=== PATIENT | female | born 1960 | race Caucasian/White ===

== ENCOUNTER 2022-06-04 06:29 | Day surgery (SDC) | payer OTHER, SELFPAY ==
[2022-05-31 11:39] VITALS: BMI 34.2
--- NOTE | 2022-06-03 10:10 | P.CONAN_ITS ---
Documented by User: Sarah Ritter NP 06/03/22 10:11 HPI - Anesthesia Eval Consult details Narrative: 62yo F for Colonoscopy PMFSH Past Medical History Medical History (Updated 05/31/22 @ 11:38 by Agnes Seals RN) Anxiety Depression Elevated cholesterol GERD (gastroesophageal reflux disease) HX: benign breast biopsy IBS (irritable bowel syndrome) Panic attacks Sciatic leg pain Surgical History Surgical History (Updated 05/31/22 @ 11:35 by Agnes Seals RN) H/O colonoscopy History of bunionectomy Hx laparoscopic cholecystectomy Social History Social History (Updated 05/31/22 @ 11:36 by Agnes Seals RN) Patient Tobacco Use Status: Former Tobacco user Quit Date: 2021 Tobacco use type: Cigarette Advance Directives: No Advance Directives Information Provided: Yes Meds Allergies Allergy/AdvReac Type Severity Reaction Status Date / Time penicillin G Allergy Unknown hives Verified 06/29/19 00:00 epinephrine AdvReac Palpitation Verified 06/04/22 06:56 s prednisone AdvReac Gastrointestinal Verified 06/04/22 06:57 Upset Home Medications Medication Instructions Recorded Confirmed Last Taken Type atorvastatin 20 mg tablet 20 mg PO BEDTIME 05/31/22 05/31/22 Unknown History calcium carbonate 600 mg-vitamin 1 tab PO DAILY 05/31/22 05/31/22 Unknown History D3 20 mcg (800 unit) chewable tablet (Caltrate 600 plus D) fluoxetine 20 mg tablet 20 mg PO DAILY 05/31/22 05/31/22 Unknown History lorazepam 0.5 mg tablet 0.5 mg PO BEDTIME PRN Anxiety 05/31/22 05/31/22 Unknown History multivitamin 1 tab PO DAILY 05/31/22 05/31/22 Unknown History omeprazole 20 mg delayed 20 mg PO DAILY 05/31/22 05/31/22 Unknown History release,disintegrating tablet Exam Exam Date and Time: June 03, 2022 1010 Height,Weight and Vital Signs: Height 5 ft 6 in Weight 96.162 kg Assessment and Plan Assessment Anesthesia Assessment: Chart Reviewed Documented by User: Hunter Rinaldi MD 06/04/22 07:01 [facility] Past Medical History Medical History (Updated 05/31/22 @ 11:38 by Agnes Seals RN) Anxiety Depression Elevated cholesterol GERD (gastroesophageal reflux disease) HX: benign breast biopsy IBS (irritable bowel syndrome) Panic attacks Sciatic leg pain Family History Family history of problems with anesthesia: No Surgical History Surgical History (Updated 05/31/22 @ 11:35 by Agnes Seals RN) H/O colonoscopy History of bunionectomy Hx laparoscopic cholecystectomy History of Problems with Anesthesia: No Social History Social History (Updated 05/31/22 @ 11:36 by Agnes Seals RN) Patient Tobacco Use Status: Former Tobacco user Quit Date: 2021 Tobacco use type: Cigarette Advance Directives: No Advance Directives Information Provided: Yes Meds Allergies Allergy/AdvReac Type Severity Reaction Status Date / Time penicillin G Allergy Unknown hives Verified 06/29/19 00:00 epinephrine AdvReac Palpitation Verified 06/04/22 06:56 s prednisone AdvReac Gastrointestinal Verified 06/04/22 06:57 Upset Home Medications Medication Instructions Recorded Confirmed Last Taken Type atorvastatin 20 mg tablet 20 mg PO BEDTIME 05/31/22 05/31/22 Unknown History calcium carbonate 600 mg-vitamin 1 tab PO DAILY 05/31/22 05/31/22 Unknown History D3 20 mcg (800 unit) chewable tablet (Caltrate 600 plus D) fluoxetine 20 mg tablet 20 mg PO DAILY 05/31/22 05/31/22 Unknown History lorazepam 0.5 mg tablet 0.5 mg PO BEDTIME PRN Anxiety 05/31/22 05/31/22 Unknown History multivitamin 1 tab PO DAILY 05/31/22 05/31/22 Unknown History omeprazole 20 mg delayed 20 mg PO DAILY 05/31/22 05/31/22 Unknown History release,disintegrating tablet Exam Airway Mallampati Class: III TM Dist: >3cm Neck ROM: Full Loose/Missing/Broken Teeth: Yes and Upper Assessment and Plan Assessment Anesthesia Assessment: Anesthesia Plan Discussed Final Anesthetic Review Family History of Problems with Anesthesia: No History of Problems with Anesthesia: No NPO: Yes ASA Class: II Final Preanesthetic Review: No Changes in Pt Med Stat, Meds/Allgs Chart Reviewed, Consent Obtained/Reviewed and Anes Risks/Benef Reviewed Patient Risk: Intermediate Procedure Risk: Low Anesthetic Plan Anesthetic Plan: MAC: Disposition: Standard PACU
[2022-06-04] MEDS: Lactated Ringers 1,000 ML 100 ML IVCONT (07:19)
[2022-06-04 08:25] VITALS: BP 118/75; PULSE 74; RESP 18; TEMP 37; O2SAT 99
--- NOTE | 2022-06-04 08:27 | P.BOP_ITS ---
Brief Operative Note Date of Service: 06/04/22 Pre-op diagnosis: Screening Post-op diagnosis: other (Diverticulosis) Procedure: Colonoscopy to the cecum and TI Surgeon: Avelino Ojeda Anesthesia: MAC Was an Merchandise Complaint Adjuster used for this Procedure?: No Estimated blood loss (mL): 0 Pathology: none sent Condition: stable Disposition: PACU
[2022-06-04 08:40] VITALS: BP 117/69; PULSE 59; RESP 16; TEMP 36.1; O2SAT 98
--- NOTE | 2022-06-04 08:46 | OP_ITS ---
SURGEON: Avelino Ojeda MD INDICATIONS: The patient presents for evaluation of colorectal cancer screening. Full consent was obtained from her for this, including risks of bleeding and perforation. PREOPERATIVE DIAGNOSIS: Colorectal cancer screening. POSTOPERATIVE DIAGNOSIS: Colorectal cancer screening, diverticulosis, internal hemorrhoids. PROCEDURE PERFORMED: Colonoscopy to the cecum and terminal ileum. ESTIMATED BLOOD LOSS: COMPLICATIONS: ANESTHESIA: Monitored anesthesia care. ASSISTANTS: SPECIMENS: DESCRIPTION OF PROCEDURE: The patient was placed in the left lateral decubitus position. The digital rectal exam revealed no abnormalities. The Olympus video pediatric colonoscope was entered into the rectum and advanced easily to the cecum. Once in the cecum, I did identify normal-appearing cecal pouch with appendiceal orifice and a normal-appearing ileocecal valve. The terminal ileum was cannulated and appeared normal. The scope was withdrawn back in the colon. The entire cecum and ileocecal valve appeared normal. The scope was slowly withdrawn assessing all mucosal surfaces carefully. Preparation was excellent. I did not visualize any sign of polyps, colitis, nor angiodysplasia. There was a mild amount of sigmoid diverticulosis. In the rectum, the scope was retroflexed visualizing internal hemorrhoids, but no other pathology. The rectal mucosa appeared normal. Scope was straightened and withdrawn from the patient. She tolerated the procedure well and was returned to the recovery area in stable condition. IMPRESSION: 1. Diverticulosis. 2. Internal hemorrhoids. PLAN: Given today negative exam and negative family history, I would recommend a followup colonoscopy in 10 years. She will otherwise see me on a p.r.n. basis. Avelino Ojeda MD RMW/MODL / [id number]
== END 2022-06-04 09:15 | disposition home or self-care (01) ==
PROVIDERS: PCP Internal Medicine; Visit Provider Internal Medicine
PROC: 0DJD8ZZ Inspection of Lower Intestinal Tract, Via Natural or Artificial Opening Endoscopic (ICD-10-PCS; CPT 45378; principal; 2022-06-04 07:30)
DX: Z12.11 Encounter for screening for malignant neoplasm of colon (principal); E78.5 Hyperlipidemia, unspecified; M54.30 Sciatica, unspecified side; F41.8 Other specified anxiety disorders; F41.0 Panic disorder [episodic paroxysmal anxiety]; Z79.899 Other long term (current) drug therapy; Z88.0 Allergy status to penicillin; Z88.8 Allergy status to other drugs, medicaments and biological substances; Z90.49 Acquired absence of other specified parts of digestive tract; Z87.891 Personal history of nicotine dependence
CPT/HCPCS: 45378

== ENCOUNTER 2025-01-07 14:18 | Outpatient (REF) | payer OTHER, SELFPAY ==
--- OUTSIDE RECORDS SUMMARY | 2025-01-07 15:53 | XMS_ITS ---
Author Organization [facility] Address [address] [facility] [address] [place] [address] Care Team Providers Care Freight Sorter Name Role Phone Fausto Koroma Primary Care Provider GLENIS Presley Unavailable [phone] Allergies Allergen (clinical drug ingredient) Drug/Non Drug Allergy documented on EMR Reaction Allergy Type Onset Date Status epinephrine Epinephrine Unknown Drug Allergy Act melissa prednisone Prednisone anxiety disorder Drug Allergy Active Penicillin Unknown Drug Allergy Active REASON FOR VISIT B/L feet pain questioning plantar fasciitis Medications Medication SIG (Take, Route, Frequency, Duration) Notes Start Date End Date Status Singulair 10 MG 1 tablet Orally Once a day Active FLUoxetine HCl 20 MG 1 capsule Orally On ce a day Active Atorvastatin Calcium 20 MG 1 tablet Oral ly Once a day Active Citracal/Vitamin D A ctive Albuterol Sulfate HFA 108 (90 Base) MCG/ACT 1 puff as needed Inhalation every 4 hrs Active Meloxicam 15 MG 1 tablet Orally Once a day Active Multi Vitamin - 1 tablet Orally Once a day Active LORazepam 0.5 MG 1 tablet at bedtime as needed Orally Once a day PRN Active Problems Problem Type SNOMED Code ICD Code Onset Dates Problem Status W/U Status Risk Notes Problem 3623627 Inflammatory arthritis (M19.90) Active confirmed Vital Signs Temperature 96.1 degrees Fahrenheit 09/13/19 24 Heart Rate 72 /min 09/13/2023 Respiratory Rate 16 /min 09/13/2023 Height 5ft 4in in 09/13/2023 Weight 182.8 lbs 09/13/2023 BMI 31.37 kg/m2 09/13/2023 Encounters Encounter Location Date Provider Diagnosis [facility] [address] [address] 09/13/2023 GLENIS BOYD Tendonitis, Achilles , right M76.61 ; Ankle enthesopathy M77.50 ; Pain in right foot M79.671 ; Pain in left foot M79.672 and Inflammatory arthritis M19.90 Assessments Encounter Date Diagnosis (ICD Code) Assessment Notes Treatment Notes Treatment Clinical Notes Section Notes 09/13/2023 Tendonitis, Achilles, right (ICD-10 - M76.61) This is an outpatient visit for evaluation and management of a new patient, which required appropriate review of pertinent medical history, review of any previous imaging, review of all previous records, and examination and decision-making. Time was 45 minutes spent in review of all these facets including face to face discussion with the patient regarding my findings and in discussion of a current and future treatment plan. On examination, she has evidence of distal Achilles tendinitis with enthesopathy. I explained she could also have an inflammatory arthropathy which could be causing this exacerbating. I explained she has mild left foot pain, likely due to compensation from the right foot. We discussed she has tendinitis of the distal Achilles tendon of the right ankle. I reviewed her x-rays, and she has no evidence of a fracture. She has no evidence of a tear or rupture of the Achilles tendon on examination today. She has no weakness of the tendon groups on examination today. We discussed tendon injuries typically do worsen with use or activity. I explained it can take 4-8 weeks for the areas to heal from the point of injury. We discussed ice can be helpful at first, but now I would recommend heat instead. I also recommended that she start an NSAID, continue the Meloxicam. The other recommendation that I discussed with the patient is temporary immobilization of the tendons to allow for rest and healing. The patient was fitted and a medium short leg pneumatic walking boot was dispensed to the patient in the office today. I told the patient to wear this daily for 4 weeks. She is to wear this daily except for driving, sleeping, and showering. We discussed if little to no improvement in 4 weeks, I would like her to return for another evaluation and I will order an MRI. Patient is in agreement with this plan. We discussed the possibility of an inflammatory or autoimmune condition. She states her hand issue started at the same time as her foot problem. I did recommend she keeps her appointment with the numberer and wirer next month. We discussed the soft tissue mass in the lower left leg. She states her PCP is ordering an MRI for this mass. I recommended she follows up with scheduling this exam. She is in agreement with this plan. 09/13/2023 Ankle enthesopathy (ICD-10 - M77.50) 09/13/2023 Pain in right foot (ICD-10 - M79.671) 09/13/2023 Pain in left foot (ICD-10 - M79.672) 09/13/2023 Inflammatory arthritis (ICD-10 - M19.90) Plan Of Treatment Treatment Notes Assessment Notes Tendonitis, Achilles, right This is an outpatient visit for evaluation and management of a new patient, which required appropriate review of pertinent medical history, review of any previous imaging, review of all previous records, and examination and decision-making. Time was 45 minutes spent in review of all these facets including face to face discussion with the patient regarding my findings and in discussion of a current and future treatment plan. On examination, she has evidence of distal Achilles tendinitis with enthesopathy. I explained she could also have an inflammatory arthropathy which could be causing this exacerbating. I explained she has mild left foot pain, likely due to compensation from the right foot. We discussed she has tendinitis of the distal Achilles tendon of the right ankle. I reviewed her x-rays, and she has no evidence of a fracture. She has no evidence of a tear or rupture of the Achilles tendon on examination today. She has no weakness of the tendon groups on examination today. We discussed tendon injuries typically do worsen with use or activity. I explained it can take 4-8 weeks for the areas to heal from the point of injury. We discussed ice can be helpful at first, but now I would recommend heat instead. I also recommended that she start an NSAID, continue the Meloxicam. The other recommendation that I discussed with the patient is temporary immobilization of the tendons to allow for rest and healing. The patient was fitted and a medium short leg pneumatic walking boot was dispensed to the patient in the office today. I told the patient to wear this daily for 4 weeks. She is to wear this daily except for driving, sleeping, and showering. We discussed if little to no improvement in 4 weeks, I would like her to return for another evaluation and I will order an MRI. Patient is in agreement with this plan. We discussed the possibility of an inflammatory or autoimmune condition. She states her hand issue started at the same time as her foot problem. I did recommend she keeps her appointment with the numberer and wirer next month. We discussed the soft tissue mass in the lower left leg. She states her PCP is ordering an MRI for this mass. I recommended she follows up with scheduling this exam. She is in agreement with this plan. Pending Test Test Name Order Date X ray : Foot, left 3v 09/13/2023 X ray : Foot, right 3v 09/13/2023 Next Appt Details Follow Up: 4 Weeks, Reason: Progress Notes * Nikolay SAUNDERSOB:1959 (63 yo F)Acc No.[id number]:09/13/2023 Progress Notes Patient:?Leda SAUNDERS Provider:?Glenis Boyd DPM :1960???Age:63 Y???Sex:Female D ate:09/13/2023 Address:[address] [place] [address] [id number] Pcp:Fausto Koroma Subjective: * Chief Complaints: * ???B/L feet pain questioning plantar fasciitis * HPI: ???Constitutional:? This 63 y/o female presents to my office with a complaint of mainly right foot and leg pain since April 2023. She had started a new job and was on her feet all day which was a change for her. She describes the pain as an aching radiating pain. She states the pain starts in her heel and radiates up her leg. Sometimes she will get pain in the knee. She relates swelling on the right foot and ankle. She denies any specific injury or trauma. She has tried changing shoes and wearing OTC inserts with very limited improvement. She states ice and Meloxicam does help, but only temporarily. She states the left heel has started to become sore due to her pain in the right foot. She also is having pain and issues in her hands as well as her feet. She has an appointment next month with a numberer and wirer. She is concerned she may have rheumatoid arthritis because she does have a strong family history of autoimmune diseases. She also is concerned of a recent lump forming on the back of the lower left leg. She states it is not painful. She has no other foot complaints this visit. Allergies and medical history reviewed. * ROS:?GENERAL: Pt denies nausea, fever, vomiting, chills, or shortness of breath. Pt in NAD. ALLERGY: patient denies any new allergy HEME/ONC: patient denies any bleeding or clotting disorders CARDIOLOGY: pt denies chest pain, palpitations LUNGS: pt denies shortness of breath ABDOMEN: patient denies any bloating, abdominal pain, or swelling MUSCULOSKELETAL: See HPI SKIN: see HPI, otherwise no lesions, rash or itching NEURO: No persistent headache, weakness or numbness PSYCH: patient denies any current anxiety or depression The remainder of the review of systems is noncontributory. * Medical History:? * Surgical History:?cholecyste ctomy colonoscopy 2bunionectomy 09/05/1997breast biopsy sample 09/05/1980right breast fatty tumor removed * Hospitalization/Major Diagno stic Procedure:?allergic reaction to penicillin * Family History:?Father: dece ased, CAD- coronary artery disease, congestive heart failure, depression, type II diabetes, mental illness.?Mother: , COPD, lung cancer, type II diabetes, hypertension, thyroid disease.?Maternal aunt: rheumatoid arthritis.?Siblings: hyperlipidemiabrother- heart disease.? nieces- rheumatoid arthritis. * Social History:?Tobacco: former smoker Alcohol: yes, once a week. * Medications:?TakingSingulair 10 MG Tablet 1 tablet Orally Once a day Multi Vitamin - Tablet 1 tablet Orally Once a day Meloxicam 15 MG Tablet 1 tablet Orally Once a day LORazepam 0.5 MG Tablet 1 tablet at bedtime as needed Orally Once a day , Notes to Pharmacist: PRNFLUoxetine HCl 20 MG Capsule 1 capsule Orally Once a day Citracal/Vitamin D Atorvastatin Calcium 20 MG Tablet 1 tablet Orally Once a day Albuterol Sulfate HFA 108 (90 Base) MCG/ACT Aerosol Solution 1 puff as needed Inhalation every 4 hrs Medication List reviewed and reconciled with the patientTaking Singulair 10 MG Tablet 1 tablet Orally Once a day Taking Multi Vitamin - Tablet 1 tablet Orally Once a day Taking Meloxicam 15 MG Tablet 1 tablet Orally Once a day Taking LORazepam 0.5 MG Tablet 1 tablet at bedtime as needed Orally Once a day , Notes to Pharmacist: PRNTaking FLUoxetine HCl 20 MG Capsule 1 capsule Orally Once a day Taking Citracal/Vitamin D Taking Atorvastatin Calcium 20 MG Tablet 1 tablet Orally Once a day Taking Albuterol Sulfate HFA 108 (90 Base) MCG/ACT Aerosol Solution 1 puff as needed Inhalation every 4 hrs Medication List reviewed and reconciled with the patient * Allergies:?EpinephrinePenici llinPrednisone: anxiety disorderno[Allergies Verified] Objective: * Vitals:?Wt:182.8lbs, Ht: 5ft 4in, BMI:31.37Index, HR:72/min, Temp:96.1F, RR:16/min, Ht-cm: 162.56, Wt-k.92 kg. * Examination: ???General Examination: ???GENERAL: Patient appears well nourished, with NAD. ?VASCULAR: Dorsalis pedis pulses are 2/4 bilaterally and Posterior tibial pulses are 2/4 bilaterally. Capillary filling time within normal limits the digits. Each foot temperature is within normal limits. Edema of the right foot and ankle. ?NEUROLOGICAL: Sharp/dull sensation intact bilaterally, position sense intact bilaterally to the midfoot. ?ORTHOPEDIC: Good muscle strength 4+/5 of all flexors and extensors. Dorsi flexion of ankle ,0 degrees, plantar flexion WNL. No muscle atrophy. Pain on dorsiflexion and plantarflexion of the right foot. Pain on palpation of the distal right Achilles to its attachment. Pain on compression of the right heel, no pain on palpation of the plantar heel. Mild tenderness on palpation of the plantar left heel, no pain on compression of the left heel. ?DERMATOLOGICAL: Soft tissue mass at the myotendinous junction of the left Achilles, posterior lower leg size 3 cm in size, non-mobile, no pain on palpation. Normal skin temperature, normal skin turgor. ?BIOMECHANICS: STJ ROM limited with pain right, MTJ ROM limited, 1st MPJ ROM limited. ?SHOES: sneakers. Therapeutic Interventions: Assessment: * Assessment: 1.?Tendonitis, Achilles, rig ht - M76.61 (Primary)?2.?Ankle enthesopathy - M77.50?3.?Pain in right foot - M79.671?4.?Pain in left foot - M79.672?5.?Inflammatory arthritis - M19.90? Plan: * Treatment: * Notes: This is an outpatient visit for evaluation and management of a new patient, which required appropriate review of pertinent medical history, review of any previous imaging, review of all previous records, and examination and decision-making. Time was 45 minutes spent in review of all these facets including face to face discussion with the patient regarding my findings and in discussion of acurrent and future treatment plan. On examination, she has evidence of distal Achilles tendinitis with enthesopathy. I explained she could also have an inflammatory arthropathy which could be causing this exacerbating. I explained shehas mild left foot pain, likely due to compensation from the right foot. We discussed she has tendinitis of the distal Achilles tendon of the right ankle. I reviewed her x-rays, and she has no evidence of a fracture. She has no evidence of a tear or rupture of the Achilles tendon on examination today. She has no weakness of the tendon groups on examination today. We discussed tendon injuries typically do worsen with use or activity. I explained it can take 4-8 weeks for the areas to heal from the point of injury. We discussed ice can be helpful at first, but now I would recommend heat instead. I also recommended that she start an NSAID, continue the Meloxicam. The other recommendation that I discussed with the patient is temporary immobilization of the tendons to allow for rest and healing. The patient was fitted and a medium short leg pneumatic walking boot was dispensed to the patient in the office today. I told the patient to wear this daily for 4 weeks. She is to wear this daily except for driving, sleeping, and showering. We discussed if little adeline improvement in 4 weeks, I would like her to return for another evaluation and I will order an MRI. Patient is in agreement with this plan. We discussed the possibility of an inflammatory or autoimmune condition. She states her hand issue started at the same time as her foot problem. I did recommend she keeps her appointment with the numberer and wirer next month. We discussed the soft tissue mass in the lower left leg. She states her PCP is ordering an MRI for this mass. I recommended she follows up with scheduling this exam. She is in agreement with this plan.??2.?Ankle enthesopathy?Imaging: X ray : Foot, left 3v* LEFT FOOT WEIGHT BEARING 3 V IEWS obtained during today's visit. On the AP view There is evidence of a previous bunionectomy performed on the distal 1st metatarsal. Calcifications are seen medially to the 1st metatarsal head. There is some recurrence of the hallux valgus deformity. There is an increased metatarsus adductus angle. On the lateral view the screw is noted to be in place and intact. The osteotomy site has since healed. There are dorsal degenerative changes of the metatarsocuneiform joints and the navicular cuneiform joints. An os peroneum is seen on the lateral view proximal to the styloid process. There is increased sclerosis of the posterior calcaneus with a proximal heel spur. A soft tissue mass noted approximately 37.11mm above the superior aspect of the calcaneus. * ?Imaging: X ray : Foot, right 3v* RIGHT FOOT WEIGHT BEARING 3 VIEWS obtained during today's visit. On the AP view There is evidence of a previous bunionectomy performed on the distal 1st metatarsal. Calcifications are seen medially to the 1st metatarsal head. There is some recurrence of the hallux valgus deformity with cystic changes of the metatarsal heads. There is an increased metatarsus adductus angle. There are calcifications also noted around the 5th metatarsophalangeal joint. On the lateral view the screw is noted to be in place and intact. The osteotomy site has since healed. There are dorsal degenerative changes of the metatarsocuneiform joints and the navicular cuneiform joints. An os peroneum is seen on the lateral view proximal to the styloid process. There is increased sclerosis of the posterior calcaneus with a proximal heel spur * 3.?Pain in right foot?Imaging: X ray : Foot, right 3v* RIGHT FOOT WEIGHT BEARING 3 VIEWS obtained during today's visit. On the AP view There is evidence of a previous bunionectomy performed on the distal 1st metatarsal. Calcifications are seen medially to the 1st metatarsal head. There is some recurrence of the hallux valgus deformity with cystic changes of the metatarsal heads. There is an increased metatarsus adductus angle. There are calcifications also noted around the 5th metatarsophalangeal joint. On the lateral view the screw is noted to be in place and intact. The osteotomy site has since healed. There are dorsal degenerative changes of the metatarsocuneiform joints and the navicular cuneiform joints. An os peroneum is seen on the lateral view proximal to the styloid process. There is increased sclerosis of the posterior calcaneus with a proximal heel spur * 4.?Pain in left foot?Imaging: X ray : Foot, left 3v* LEFT FOOT WEIGHT BEARING 3 V IEWS obtained during today's visit. On the AP view There is evidence of a previous bunionectomy performed on the distal 1st metatarsal. Calcifications are seen medially to the 1st metatarsal head. There is some recurrence of the hallux valgus deformity. There is an increased metatarsus adductus angle. On the lateral view the screw is noted to be in place and intact. The osteotomy site has since healed. There are dorsal degenerative changes of the metatarsocuneiform joints and the navicular cuneiform joints. An os peroneum is seen on the lateral view proximal to the styloid process. There is increased sclerosis of the posterior calcaneus with a proximal heel spur. A soft tissue mass noted approximately 37.11mm above the superior aspect of the calcaneus. * 5.?Inflammatory arthritis?Imaging: X ray : Foot, left 3v* LEFT FOOT WEIGHT BEARING 3 V IEWS obtained during today's visit. On the AP view There is evidence of a previous bunionectomy performed on the distal 1st metatarsal. Calcifications are seen medially to the 1st metatarsal head. There is some recurrence of the hallux valgus deformity. There is an increased metatarsus adductus angle. On the lateral view the screw is noted to be in place and intact. The osteotomy site has since healed. There are dorsal degenerative changes of the metatarsocuneiform joints and the navicular cuneiform joints. An os peroneum is seen on the lateral view proximal to the styloid process. There is increased sclerosis of the posterior calcaneus with a proximal heel spur. A soft tissue mass noted approximately 37.11mm above the superior aspect of the calcaneus. * ?Imaging: X ray : Foot, right 3v* RIGHT FOOT WEIGHT BEARING 3 VIEWS obtained during today's visit. On the AP view There is evidence of a previous bunionectomy performed on the distal 1st metatarsal. Calcifications are seen medially to the 1st metatarsal head. There is some recurrence of the hallux valgus deformity with cystic changes of the metatarsal heads. There is an increased metatarsus adductus angle. There are calcifications also noted around the 5th metatarsophalangeal joint. On the lateral view the screw is noted to be in place and intact. The osteotomy site has since healed. There are dorsal degenerative changes of the metatarsocuneiform joints and the navicular cuneiform joints. An os peroneum is seen on the lateral view proximal to the styloid process. There is increased sclerosis of the posterior calcaneus with a proximal heel spur * * Procedure Codes:?43978 X-RAY EXAM OF FOOT 3 Views, Modifiers: RT 38627 X-RAY EXAM OF FOOT 3 Views, Modifiers: LT L4361 WALKING BOOT PNEUMATIC AND/OR VAC, Modifiers: RT * Follow Up:?4 Weeks * Billing Information: * Visit Code:? 59070 Office Visit, New Pt., Level 4. * Procedure Codes:? 95313 X-RAY EXAM OF FOOT 3 Views. Modifiers: RT 71083 X-RAY EXAM OF FOOT 3 Views. Modifiers: LT L4361 WALKING BOOT PNEUMATIC AND/OR VAC. Modifiers: RT * Sign off status: Completed true * Provider:Atul Boyd DPM Date:? 09/13/2023 Generated for Keny mi/Oleg/Melissaitting on:?01/07/2025 03:53 PM EDT History and Physical Notes * HPI (History of Present Illness) Category Sub-Category Detail Notes Category Not es Constitutional This 63 y/o f maribeth presents to my office with a complaint of mainly right foot and leg pain since April 2023. She had started a new job and was on her feet all day which was a change for her. She describes the pain as an aching radiating pain. She states the pain starts in her heel and radiates up her leg. Sometimes she will get pain in the knee. She relates swelling on the right foot and ankle. She denies any specific injury or trauma. She has tried changing shoes and wearing OTC inserts with very limited improvement. She states ice and Meloxicam does help, but only temporarily. She states the left heel has started to become sore due to her pain in the right foot. She also is having pain and issues in her hands as well as her feet. She has an appointment next month with a numberer and wirer. She is concerned she may have rheumatoid arthritis because she does have a strong family history of autoimmune diseases. She also is concerned of a recent lump forming on the back of the lower left leg. She states it is not painful. She has no other foot complaints this visit. Allergies and medical history reviewed. Examination Category Sub-Category Detail Notes Category Not es General Examination GENERAL: Patient appears well nourished, with NAD. VASCULAR: Dorsalis pedis pulses are 2/4 bilaterally and Posterior tibial pulses are 2/4 bilaterally. Capillary filling time within normal limits the digits. Each foot temperature is within normal limits. Edema of the right foot and ankle. NEUROLOGICAL: Sharp/dull sensation intact bilaterally, position sense intact bilaterally to the midfoot. ORTHOPEDIC: Good muscle strength 4+/5 of all flexors and extensors. Dorsi flexion of ankle ,0 degrees, plantar flexion WNL. No muscle atrophy. Pain on dorsiflexion and plantarflexion of the right foot. Pain on palpation of the distal right Achilles to its attachment. Pain on compression of the right heel, no pain on palpation of the plantar heel. Mild tenderness on palpation of the plantar left heel, no pain on compression of the left heel. DERMATOLOGICAL: Soft tissue mass at the myotendinous junction of the left Achilles, posterior lower leg size 3 cm in size, non-mobile, no pain on palpation. Normal skin temperature, normal skin turgor. BIOMECHANICS: STJ ROM limited with pain right, MTJ ROM limited, 1st MPJ ROM limited. SHOES: sneakers
--- OUTSIDE RECORDS SUMMARY | 2025-01-07 15:53 | XMS_ITS | Patient Health Record ---
Author Organization [facility] Address [address] [facility] [place] [address] Care Team Providers Care Women'S Garment Fitter Name Role Phone Fausto Koroma MD Primary Care Provider Rupesh Merritt Unavailable [phone] Allergies Allergen (clinical drug ingredient) Drug/Non Drug Allergy documented on EMR Reaction Allergy Type Onset Date Status EPINEPHrine heart races Drug Allergy Active Novocain heart races Drug Allergy Active Penicillin hives/hospital ization Drug Allergy Active methylprednisolone Methylprednisolone mentally a nd physically affected pt Drug Allergy Active Reason For Referral No Information Medications Medication SIG (Take, Route, Frequency, Duration) Notes Start Date End Date Status Align Not-Taking Aspirin Not-Taking metFORMIN HCl ER 500 MG 1 tablet with ev ening meal Orally Once a day Not-Takin g One Daily For Women Active Omeprazole 20 MG 1 capsule 30 minutes before morning meal Orally Once a day for 30 day(s) Active Fluoxetine Active Caltrate 600+D3 Acti ve Atorvastatin Calcium Active Social History Tobacco Use: Social History Observation Description Date Details (start date - stop date) Former Smoker NA - NA Tobacco Use/Smoking Question Answer Notes Are you a: former smoker Additional Findings: Tobacco Non-User Current no n-smoker Alcohol Screen Question Answer Notes Did you have a drink contain ing alcohol in the past year? Yes How often did you have a dri nk containing alcohol in the past year? 2 to 3 times a week (3 points) Points 3 Interpretation Positive Tobacco use other than smoking: Question Answer Notes Are you an other tobacco user? No Problems Problem Type SNOMED Code ICD Code Onset Dates Problem Status W/U Status Risk Notes Problem Acquired hammer toe of right foot (2394081666025 105) Other hammer toe(s) (acquired), right foot (M20.41) Active confirmed Plan Of Treatment Pending Test Test Name Order Date X ray : Foot, right 3V 11/03/2016 X ray : Foot, right 3V 03/01/2022 [id number] Destruction, -11/03/2016 [id number] Destruction, 09-1812/06/2016 Insurance Providers Payer Name Payer Address Payer Phone Subscriber Number Group Number Insured Name Patient Relationship to Insured Coverage Start Date [facility]age End Date [facility] [address] [place] [address] [phone] [id number] Leda Atkinson Self - patient is the insured Medical (General) History Medical History History ICD Code Anxiety Depression chronic sinusitis Thyroid disorder Chicken pox Joint implants/screws Gall bladder problems Stomach ulcer Cholesterol Surgical History Surgery Date(Month/Year) bunionectomy 1995 gall bladder-bad reaction to anesthesia breast biopsy-right/fatty tumor 1978 Hospitalization History Reason Date(Month/Year) [place]- thought she was hav ing Heart Attck Rapid Heart beat-due to med/methylprednisolone allergy 1 day 07/2021
--- OUTSIDE RECORDS SUMMARY | 2025-01-07 15:53 | XMS_ITS | Patient Health Record ---
Author Organization [facility] Address [address] [facility] [address] [place] [address] Care Team Providers Care Medical Engineer Name Role Phone Fausto Koroma Primary Care Provider ZEINA Presley Unavailable [phone] Allergies Allergen (clinical drug ingredient) Drug/Non Drug Allergy documented on EMR Reaction Allergy Type Onset Date Status epinephrine Epinephrine Unknown Drug Allergy Act melissa prednisone Prednisone anxiety disorder Drug Allergy Active Penicillin Unknown Drug Allergy Active Reason For Referral No Information Medications Medication SIG (Take, Route, Frequency, Duration) Notes Start Date End Date Status Singulair 10 MG 1 tablet Orally Once a day Active Meloxicam 15 MG 1 tablet Orally Once a day Active Multi Vitamin - 1 tablet Orally Once a day Active FLUoxetine HCl 20 MG 1 capsule Orally On ce a day Active LORazepam 0.5 MG 1 tablet at bedtime as needed Orally Once a day PRN Active Atorvastatin Calcium 20 MG 1 tablet Oral ly Once a day Active Citracal/Vitamin D A ctive Albuterol Sulfate HFA 108 (90 Base) MCG/ACT 1 puff as needed Inhalation every 4 hrs Active Problems Problem Type SNOMED Code ICD Code Onset Dates Problem Status W/U Status Risk Notes Problem 1652074 Inflammatory arthritis (M19.90) Active confirmed Plan Of Treatment Pending Test Test Name Order Date X ray : Foot, left 3v 09/13/2023 X ray : Foot, right 3v 09/13/2023 Insurance Providers Payer Name Payer Address Payer Phone Subscriber Number Group Number Insured Name Patient Relationship to Insured Coverage Start Date Coverage End Date [facility] [address] [place] [address] [phone] [id number] Leda Atkinson Self - patient is the insured Medical (General) History Medical History History ICD Code abnormal EKG allergic asthma atrophic vaginitis hypertension carpal tunnel syndrome on right fatty liver GERD (gastroesophageal reflux disease) tobacco use hypercholesterolemia hyperglycemia left sided sciatica palpitations peripheral neuropathy severe obesity (BMI 35.0-39.9) with aidan rbidity solitary pulmonary nodule stress incontinence thyroid cyst COVID vaccinated X 2 + COVID 2022 Graves disease Surgical History Surgery Date(Month/Year) cholecystectomy colonoscopy 06/04/2022 bunionectomy 09/05/1997 breast biopsy sample 09/05/1980 right breast fatty tumor removed Hospitalization History Reason Date(Month/Year) allergic reaction to penicillin
--- OUTSIDE RECORDS SUMMARY | 2025-01-07 15:54 | XMS_ITS ---
Author Organization [facility] Address [address] [address] Care Team Providers Care Auto Tune Up Mechanic Name Role Phone Fausto Koroma Primary Care Provider ZEINA Presley [phone] REASON FOR VISIT 4wk Encounters Encounter Location Date Provider Diagnosis [facility] [address] [address] 10/11/2023 ZEINA BOYD Plan Of Treatment No Information Progress Notes * Nikolay SAUNDERSOB:1959 (64 yo F)Acc No.[id number]:10/11/2023 Progress Note Patient:?Leda SAUNDERS Provider:Atul Boyd DPM :1960???Age:63 Y???Sex:Female D ate:10/11/2023 Address:[address] [place] [id number] Pcp:Fausto Koroma Subjective: * Chief Complaints: * ???1. 4wk. * Medical History:? Objective: * Vitals:? Assessment: Plan: * Treatment: * Billing Information: * Visit Code:? * Procedure Codes:? * Electronic signature of HEIDY BOYD D.P.M on 01/07/2025 at 03:53 PM EDT Sign off status: Pending * Provider:Atul Boyd DPM Date:? 10/11/2023 Generated for Angelai hiwot/Oleg/eTransmitting on:?01/07/2025 03:53 PM EDT
--- OUTSIDE RECORDS SUMMARY | 2025-01-07 15:54 | XMS_ITS | Patient Health Record ---
Author Organization [facility] Address [address] [place] [address] Care Team Providers Care Shaker Tender Name Role Phone Fausto Koroma MD Primary Care Provider Avelino Conroy [phone] Allergies Allergen (clinical drug ingredient) Drug/Non Drug Allergy documented on EMR Reaction Allergy Type Onset Date Status prednisolone Prednisolone Unknown Drug Allergy A ctive Penicillin Unknown Drug Allergy Active EPINEPHrine Unknown Drug Allergy Activ e Reason For Referral No Information Medications Medication SIG (Take, Route, Frequency, Duration) Notes Start Date End Date Status Atorvastatin Calcium 20 MG 1 tablet Orally Once a day for 30 day(s) Active Caltrate 600+D3 600-800 MG-UNIT 1 tablet with a meal Orally Once a day for 30 day(s) Active LORazepam 0.5 MG 1 tablet at bedtime as needed Orally Once a day Rarely uses Active One Daily Adults 50+ - as directed Orally Active Calcium + D 600mg Ac tive Multi Vitamin/Minerals Active Omeprazole 20 MG 1 capsule 30 minutes before morning meal Orally Once a day for 30 day(s) Active FLUoxetine HCl 20 MG 1 capsule Orally On ce a day for 30 day(s) Active Immunizations Vaccine Route Administration Date Status Comme nts Influenza Unknown 07/28/2021 Administered Social History Alcohol Screen Question Answer Notes Did you have a drink contain ing alcohol in the past year? Yes How often did you have a dri nk containing alcohol in the past year? Monthly or less (1 point) How many drinks did you have on a typical day when you were drinking in the past year? 1 or 2 drinks (0 point) How often did you have 6 or more drinks on one occasion in the past year? Never (0 point) Points 1 Interpretation Negative Section Notes: Stopped smoking for the past 2 months, no sig. EtOH use Nonsmoker, no sig. EtOH use Problems Problem Type SNOMED Code ICD Code Onset Dates Problem Status W/U Status Risk Notes Problem Screening for malignant neoplasm of colon (026510651) Encounter for screening for malignant neoplasm of colon (Z12.11) Active confirmed Problem Diverticulosis of colon (274891684) Diverticulosis of colon (K57.30) Active confirmed Plan Of Treatment Pending Test Test Name Order Date CELIAC PANEL #10 11/05/2011 ENDOMYSIAL IGA 11/05/2011 TRANSGLUTAMINASE AB IGA 11/05/2011 TRANSGLUTAMINASE AB IGG 11/05/2011 Future Test Test Name Order Date COLONOSCOPY 11/05/2011 COLONOSCOPY 03/31/2022 Insurance Providers Payer Name Payer Address Payer Phone Subscriber Number Group Number Insured Name Patient Relationship to Insured Coverage Start Date Coverage End Date [employer] [address] [place] [address] [id number] MJ CHOWDHURY Self - patient is the insured Medical (General) History Medical History History ICD Code Hyperlipidemia Denies [place],DM,CVA,Lung disease,renal dise ase Depression/anxiety/panic attacks Negative screening colonoscopy in 12/2011 Sciatica Surgical History Surgery Date(Month/Year) CCY Benign breast biopsy Bunions
[2025-01-07 17:32] LABS: MANUAL DIFF FLAG NO
[2025-01-07 17:39] LABS: Basophils Percent Auto 0.4 % (0-2); Eosinophils Absolute Auto 0.5 X10*3/uL (0.0-0.4); Eosinophils Percent Auto 4.4 % (0-4); Hemoglobin 13.8 g/dl (12.0-16.0); Imm Gran Abs Auto 0.05 X10*3/uL (0.00-0.03); Imm Gran Pct Auto 0.5 % (0.0-0.4); Lymphocytes Absolute Auto 1.8 X10*3/uL (1.2-4.9); Lymphocytes Percent Auto 17.7 % (20-40); Mean Corpuscular HGB Conc 34.5 g/dl (31.0-35.0); Mean Corpuscular Hemoglobin 30.6 pg (27.0-33.0); Mean Corpuscular Volume 88.7 fL (80.0-98.0); Mean Platelet Volume 8.9 fL (9.4-12.3); Monocytes Absolute Auto 0.7 X10*3/uL (0.1-1.2); Monocytes Percent Auto 6.8 % (2-11); Neutrophils Absolute Auto 7.2 x10*3/uL (2.0-8.3); Neutrophils Percent Auto 70.2 % (45-73); Platelet Count 319 X10*3/uL (160-400); Red Blood Count 4.51 X10*6/uL (4.20-5.50); Red Cell Distribution Width 14.8 % (11.0-16.0); White Blood Count 10.3 X10*3/uL (4.8-10.8)
[2025-01-07 17:50] LABS: Alanine Aminotransferase 14 U/L (0-31); Aspartate Amino Transferase 20 U/L (5-31); C Reactive Protein 1.65 mg/dL (< or = 0.50); Estimated Glomerular Filt Rate > 60
[2025-01-07 18:15] LABS: Erythrocyte Sedimentation Rate 16 MM/HR (0-20)
== END 2025-01-07 14:19 | disposition home or self-care (01) ==
LOC: HO.WFDLDS 14:18
PROVIDERS: Visit Provider Internal Medicine Rheumatology
DX: M05.9 Rheumatoid arthritis with rheumatoid factor, unspecified (principal); Z79.899 Other long term (current) drug therapy
CPT/HCPCS: 36415; 82040; 82565; 84450; 84460; 85025; 85652; 86140

== ENCOUNTER 2025-03-22 08:14 | Outpatient (REF) | payer OTHER, SELFPAY ==
--- OUTSIDE RECORDS SUMMARY | 2025-03-22 08:17 | XMS_ITS | Patient Health Record ---
Author Organization [facility] Address [address] [facility] [address] [place] [address] Care Team Providers Care Shiftman Name Role Phone Fausto Koroma Primary Care Provider ZEINA Presley Unavailable [phone] Allergies Allergen (clinical drug ingredient) Drug/Non Drug [...] Problem Status W/U Status Risk Notes Problem 2889682 Inflammatory arthritis (M19.90) Active confirmed Plan Of Treatment Pending Test Test Name Order Date X ray : Foot, left 3v 09/13/2023 X ray : Foot, right 3v 09/13/2023 Insurance Providers Payer Name Payer Address Payer Phone Subscriber Number Group Number Insured Name Patient Relationship to Insured Coverage Start Date Coverage End Date [employer] [address] [place] [address] [id number] Leda Atkinson Self - patient is the [...]
--- OUTSIDE RECORDS SUMMARY | 2025-03-22 08:18 | XMS_ITS | Patient Health Record ---
Author Organization [facility] Address [address] [facility] [place] [address] Care Team Providers Care Talent Engineer Name Role Phone Fausto Koroma MD Primary Care Provider Rupesh Merritt Unavailable [phone] Allergies Allergen (clinical drug ingredient) Drug/Non Drug [...] minutes before morning meal Orally Once a day; Duration: 30 day(s) Active Fluoxetine Active Caltrate 600+D3 [...] Problem Acquired hammer toe of right foot (3429446320299 105) Other hammer toe(s) (acquired), right foot (M20.41) Active confirmed Plan Of Treatment Pending Test Test Name Order Date X ray : Foot, right 3V 11/03/2016 X ray : Foot, right 3V 03/01/2022 [id number] Destruction, -11/03/2016 [id number] Destruction, -12/06/2016 Insurance Providers Payer Name Payer Address Payer Phone Subscriber Number Group Number Insured Name Patient Relationship to Insured Coverage Start Date Coverage End Date [employer] [address] [place] [address] [phone] [id number] Leda Atkinson Self - patient is the insured Medical (General) History Medical History History ICD Code Anxiety Depression chronic sinusitis Thyroid disorder Chicken pox Joint implants/screws Gall bladder problems Stomach ulcer Cholesterol Surgical History Surgery Date(Month/Year) bunionectomy 1995 gall bladder-bad reaction to anesthesia breast biopsy-right/fatty tumor 1978 Hospitalization History Reason Date(Month/Year) [place]- thought she was hav ing Heart Attck Rapid Heart beat-due to med/methylprednisolone allergy 1 day 07/2021
--- OUTSIDE RECORDS SUMMARY | 2025-03-22 08:18 | XMS_ITS | Patient Health Record ---
Author Organization [facility] Address [address] [place] [address] Care Team Providers Care Community Living Coach Name Role Phone Fausto Koroma MD Primary Care Provider Avelino Conroy [phone] Allergies Allergen (clinical drug ingredient) Drug/Non Drug [...] Problem Screening for malignant neoplasm of colon (370784600) Encounter for screening for malignant neoplasm of colon (Z12.11) Active confirmed Problem Diverticulosis of colon (883769700) Diverticulosis of colon (K57.30) Active confirmed Plan [...] Date Coverage End Date [employer] [address] [place] [address] [phone] [id number] MJ CHOWDHURY Self - patient is the insured Medical (General) History Medical History History ICD Code Hyperlipidemia Denies [place],DM,CVA,Lung disease,renal dise ase Depression/anxiety/panic attacks Negative screening colonoscopy in 12/2011 Sciatica Surgical History Surgery Date(Month/Year) CCY Benign breast biopsy Bunions
[2025-03-22 11:14] LABS: MANUAL DIFF FLAG NO
[2025-03-22 11:31] LABS: Hematocrit 39.7 % (37.0-47.0); Hemoglobin 13.4 g/dl (12.0-16.0); Imm Gran Abs Auto 0.05 X10*3/uL (0.00-0.03); Imm Gran Pct Auto 0.5 % (0.0-0.4); Lymphocytes Absolute Auto 1.5 X10*3/uL (1.2-4.9); Mean Corpuscular HGB Conc 33.8 g/dl (31.0-35.0); Mean Corpuscular Hemoglobin 30.5 pg (27.0-33.0); Mean Corpuscular Volume 90.4 fL (80.0-98.0); NRBC Abs Auto 0.000 X10*3/uL (0.0-0.012); NRBC Pct Auto 0.0 /100WBC (0.0-0.2); Platelet Count 329 X10*3/uL (160-400); Red Blood Count 4.39 X10*6/uL (4.20-5.50); White Blood Count 9.8 X10*3/uL (4.8-10.8)
[2025-03-22 11:47] LABS: Alanine Aminotransferase 20 U/L (0-31); Albumin Level 4.1 g/dL (3.5-5.0); Aspartate Amino Transferase 23 U/L (5-31); Estimated Glomerular Filt Rate > 60
[2025-03-22 11:57] LABS: Alanine Aminotransferase 18 U/L (0-31); Albumin Level 4.2 g/dL (3.5-5.0); Alkaline Phosphatase 107 U/L (39-117); Anion Gap 11 (12-20); Aspartate Amino Transferase 25 U/L (5-31); Blood Urea Nitrogen 16 mg/dL (9-16); Calcium 8.7 mg/dL (8.4-10.2); Carbon Dioxide 27 mmol/L (22-29); Chloride 108 mmol/L (96-108); Cholesterol 152 mg/dL (<200); Estimated Glomerular Filt Rate > 60; HDL Cholesterol 49 mg/dL (>40); Potassium 4.1 mmol/L (3.3-5.1); Sodium 142 mmol/L (135-145); Total Protein 7.1 g/dL (6.5-8.0)
[2025-03-22 12:13] LABS: Thyroid Stimulating Hormone 0.23 uIU/mL (0.32-4.0)
== END 2025-03-22 08:15 | disposition home or self-care (01) ==
LOC: HO.WFDLDS 08:14
PROVIDERS: Internal Medicine Rheumatology; Visit Provider Nurse Practitioner Adult Health
DX: M05.9 Rheumatoid arthritis with rheumatoid factor, unspecified (principal); E78.00 Pure hypercholesterolemia, unspecified; E04.1 Nontoxic single thyroid nodule
CPT/HCPCS: 36415; 80053; 82040; 82465; 82565; 83718; 83721; 84443; 84450; 84460; 85025; 85652; 86140

== ENCOUNTER 2025-04-06 07:23 | Outpatient (REF) | payer OTHER, SELFPAY ==
--- NOTE | ~2025-04-06 | CT_ITS ---
CLINICAL HISTORY: Solitary pulmonary nodule CT chest without contrast Comparison: None provided Findings: The heart is normal size. Mildly nonhomogeneous goiter with a few likely nodules measuring up to 15 mm in the axial plane. Small subcentimeter left thyroid lobe calcification. 1 mm calcified granuloma in the lingula best seen on the MIP images. Otherwise clear lungs. Cholecystectomy. No acute fractures. IMPRESSION: Mildly nonhomogeneous goiter with a few likely nodules measuring up to 15 mm in the axial plane. Further evaluation with ultrasound recommended. Tiny left lung calcified granuloma. Otherwise clear lungs. This document has been electronically signed by: Virgie Burr MD on 04/08/2025 12:47:46
--- OUTSIDE RECORDS SUMMARY | 2025-04-06 07:25 | XMS_ITS | Patient Health Record ---
Author Organization [facility] Address [address] [place] [address] Care Team Providers Care Client Services Administrator Name Role Phone Fausto Koroma MD Primary Care Provider Avelino Conroy [phone] Allergies Allergen (clinical drug ingredient) Drug/Non Drug [...] Problem Screening for malignant neoplasm of colon (521773666) Encounter for screening for malignant neoplasm of colon (Z12.11) Active confirmed Problem Diverticulosis of colon (451566684) Diverticulosis of colon (K57.30) Active confirmed Plan [...] Date Coverage End Date [employer] [address] [place] [address] [id number] MJ CHOWDHURY Self - patient is the insured Medical (General) History Medical History History ICD Code Hyperlipidemia Denies [place],DM,CVA,Lung disease,renal dise ase Depression/anxiety/panic attacks Negative screening colonoscopy in 12/2011 Sciatica Surgical History Surgery Date(Month/Year) CCY Benign breast biopsy Bunions
--- OUTSIDE RECORDS SUMMARY | 2025-04-06 07:25 | XMS_ITS | Patient Health Record ---
Author Organization [facility] Address [address] [facility] [place] [address] Care Team Providers Care Medical Records Coordinator Name Role Phone Fausto Koroma MD Primary Care Provider Rupesh Merritt Unavailable [phone] Allergies Allergen (clinical drug ingredient) Drug/Non Drug [...] Problem Acquired hammer toe of right foot (7821252008460 105) Other hammer toe(s) (acquired), right foot (M20.41) Active confirmed Plan Of Treatment Pending Test Test Name Order Date X ray : Foot, right 3V 11/03/2016 X ray : Foot, right 3V 03/01/2022 [id number] Destruction, -11/03/2016 [id number] Destruction, -12/06/2016 Insurance Providers Payer Name Payer Address Payer Phone Subscriber Number Group Number Insured Name Patient Relationship to Insured Coverage Start Date Coverage End Date [employer] [address] [place] [address] [id number] Leda Atkinson Self - patient is the [...]
--- OUTSIDE RECORDS SUMMARY | 2025-04-06 07:25 | XMS_ITS | Patient Health Record ---
Author Organization [facility] Address [address] [facility] [address] [place] [address] Care Team Providers Care Machine Sole Leveler Name Role Phone Fausto Koroma Primary Care Provider ZEINA Presley Unavailable [phone] Allergies Allergen (clinical drug ingredient) Drug/Non Drug [...] Problem Status W/U Status Risk Notes Problem Inflammatory arthritis (M19.90) Active confirmed Plan Of Treatment Pending Test Test Name Order Date X ray : Foot, left 3v 09/13/2023 X ray : Foot, right 3v 09/13/2023 Insurance Providers Payer Name Payer Address Payer Phone Subscriber Number Group Number Insured Name Patient Relationship to Insured Coverage Start Date Coverage End Date [employer] [facility] [address] [place] [address] [id number] Leda Atkinson Self - patient is the [...]
== END 2025-04-06 07:24 | disposition home or self-care (01) ==
LOC: HO.CT 07:23
PROVIDERS: PCP Nurse Practitioner Adult Health; Visit Provider Nurse Practitioner Adult Health
DX: R91.1 Solitary pulmonary nodule (principal)
CPT/HCPCS: 71250

== ENCOUNTER → 2025-04-06 07:45 | Outpatient (BNV) | payer OTHER, SELFPAY | PROVIDERS: PCP Nurse Practitioner Adult Health; Visit Provider Radiology Diagnostic Radiology | DX: R91.1 Solitary pulmonary nodule (principal) | CPT/HCPCS: 71250 ==

== ENCOUNTER 2025-05-21 12:24 | Outpatient (REF) | payer OTHER, SELFPAY ==
--- NOTE | ~2025-05-21 | US_ITS ---
EXAMINATION: US THYROID HISTORY: GOITER TECHNIQUE: Real-time grayscale ultrasound imaging was performed and images were reviewed. COMPARISON: Correlation is made with a CT of the chest without contrast dated 04/06/2025. FINDINGS: SIZE: The right thyroid lobe measures 7.4 x 2.8 x 2.4 cm. The left thyroid lobe measures 7.4 x 3.5 x 3.0 cm. The isthmus measures 11 mm. FLOW: Flow to the gland is normal. ECHOGENICITY: The echotexture of the gland is heterogeneous. NODULES: Multiple bilateral nodules are identified. The largest are described below: Nodule #: 1 Location: Lower pole of the right thyroid lobe measuring 2.8 x 1.9 x 1.9 cm Shape: Wider than tall (0 points) Margins: Smooth (0 points) Echotexture: n/a Composition: Spongiform (0 points) Calcifications: None (0 points) Total points: 0 TIRADS: TR1: Benign Nodule #: 2 Location: Overall the right thyroid lobe measuring 1.9 x 1.4 x 1.6 cm. Shape: Wider than tall (0 points) Margins: Smooth (0 points) Echotexture: n/a Composition: Spongiform (0 points) Calcifications: None (0 points) Total points: 0 TIRADS: TR1: Benign Nodule #: 3 Location: Isthmus measuring 1.0 x 0.7 x 1.1 cm. Shape: Wider than tall (0 points) Margins: Smooth (0 points) Echotexture: Isoechoic (1 point) Composition: Mostly solid (2 points) Calcifications: None (0 points) Total points: 3 TIRADS: TR3: Mildly suspicious. Nodule #: 4 Location: Lower pole of the left thyroid lobe measuring 2.6 x 3.7 x 3.6 cm. Shape: Wider than tall (0 points) Margins: Smooth (0 points) Echotexture: n/a Composition: Spongiform (0 points) Calcifications: None (0 points) Total points: 0 TIRADS: TR1: Benign Nodule #: 5 Location: Midportion of the left thyroid lobe measuring 1.1 x 0.7 x 0.9 cm. Shape: Wider than tall (0 points) Margins: Smooth (0 points) Echotexture: Isoechoic (1 point) Composition: Mixed (1 point) Calcifications: Punctate calcifications (3 points) Total points: 5 TIRADS: TR4: Moderately suspicious. US/US thyroid IMPRESSION: Multiple bilateral thyroid nodules as described. According to ACR TI-RADS guidelines, the nodule in the midportion of the left thyroid lobe (#5 above) should be followed. ACR TI-RADS Guidelines TR1 (0 points): Benign. No follow-up or biopsy required TR2 (2 points): Not Suspicious. No biopsy or follow up indicated TR3 (3 points): Mildly Suspicious. FNA if >= 2.5 cm, Follow if >= 1.5 cm TR4 (4-6 points): Moderately Suspicious. FNA if >= 1.5 cm, Follow if >= 1.0 cm TR5 (>=7 points): Highly Suspicious. FNA if >= 1.0 cm, Follow if >= 0.5 cm Electronically signed by: Avelino Miller MD 05/21/2025 01:15 PM EDT
--- OUTSIDE RECORDS SUMMARY | 2025-05-21 16:26 | XMS_ITS | Patient Health Record ---
Author Organization [facility] Address [address] [facility] [address] [place] [address] Care Team Providers Care Pill Maker Name Role Phone Fausto Koroma Primary Care Provider ZEINA Presley Unavailable [phone] Allergies Allergen (clinical drug ingredient) Drug/Non Drug [...] W/U Status Risk Notes Problem Inflammatory arthritis (1253425) Inflammatory arthritis (M19.90) Active confirmed Plan Of Treatment Pending Test Test Name Order Date X ray : Foot, left 3v 09/13/2023 X ray : Foot, right 3v 09/13/2023 Insurance Providers Payer Name Payer Address Payer Phone Subscriber Number Group Number Insured Name Patient Relationship to Insured Coverage Start Date Coverage End Date [facility] [address] [place] [address] [id number] Leda Atkinson Self - patient is the [...]
--- OUTSIDE RECORDS SUMMARY | 2025-05-21 16:26 | XMS_ITS | Patient Health Record ---
Author Organization [facility] Address [address] [facility] [place] [address] Care Team Providers Care Fitter Armament Name Role Phone Fausto Koroma MD Primary Care Provider Rupesh Merritt Unavailable [phone] Allergies Allergen (clinical drug ingredient) Drug/Non Drug [...] Problem Acquired hammer toe of right foot (4991306272371 105) Other hammer toe(s) (acquired), right foot (M20.41) Active confirmed Plan Of Treatment Pending Test Test Name Order Date X ray : Foot, right 3V 11/03/2016 X ray : Foot, right 3V 03/01/2022 [id number] Destruction, -11/03/2016 [id number] Destruction, -12/06/2016 Insurance Providers Payer Name Payer Address Payer Phone Subscriber Number Group Number Insured Name Patient Relationship to Insured Coverage Start Date Coverage End Date [employer] [address] [place] [address] [id number] Leda Atkinson Self - patient is the [...]
--- OUTSIDE RECORDS SUMMARY | 2025-05-21 16:26 | XMS_ITS | Patient Health Record ---
Author Organization [facility] Address [address] [place] [address] Care Team Providers Care Senior Physician Name Role Phone Fausto Koroma MD Primary Care Provider Avelino Conroy [phone] Allergies Allergen (clinical drug ingredient) Drug/Non Drug [...] Problem Screening for malignant neoplasm of colon (345572540) Encounter for screening for malignant neoplasm of colon (Z12.11) Active confirmed Problem Diverticulosis of colon (429599457) Diverticulosis of colon (K57.30) Active confirmed Plan [...] Date Coverage End Date [employer] [address] [facility] [place] [address] [id number] MJ CHOWDHURY Self - patient is the insured Medical (General) History Medical History History ICD Code Hyperlipidemia Denies [place],DM,CVA,Lung disease,renal dise ase Depression/anxiety/panic attacks Negative screening colonoscopy in 12/2011 Sciatica Surgical History Surgery Date(Month/Year) CCY Benign breast biopsy Bunions
== END 2025-05-21 12:25 | disposition home or self-care (01) ==
LOC: HO.HMGCX 12:24
PROVIDERS: PCP Nurse Practitioner Adult Health; Visit Provider Nurse Practitioner Adult Health
DX: E04.9 Nontoxic goiter, unspecified (principal)
CPT/HCPCS: 76536

== ENCOUNTER → 2025-05-21 12:43 | Outpatient (BNV) | payer OTHER, SELFPAY | PROVIDERS: PCP Nurse Practitioner Adult Health; Visit Provider Radiology Diagnostic Radiology | DX: E04.2 Nontoxic multinodular goiter (principal) | CPT/HCPCS: 76536 ==

== ENCOUNTER 2025-05-30 14:27 | Outpatient (AMB) | payer OTHER, SELFPAY ==
[2025-05-30 14:29] VITALS: BP 130/72; PULSE 69; O2SAT 97; BMI 36.1
--- NOTE | 2025-05-30 14:29 | A.OFFVIS_ITS ---
Vital Signs 05/30/25 14:29 Height 5 ft 5 in Weight 217 lb 2.485 oz BMI 36.1 BP 130/72 Blood Pressure Location Lt brachial Position Sitting Pulse 69 Pulse Source Pulse Oximeter Pulse Oximetry (%) 97 Oxygen Delivery Method Room Air Intake Visit Reasons: Thyroid nodule Intake Note: Patient present today for thyroid nodule office visit. Brewing Technician Required: No Accompanied by: Self / Same As Patient Allergies penicillin G Allergy (Unknown, Verified 05/30/25 14:33) hives epinephrine Adverse Reaction (Verified 05/30/25 14:33) Palpitations prednisone Adverse Reaction (Verified 05/30/25 14:33) Gastrointestinal Upset Medication List - Last Reconciled 05/30/25 by Margie Mclaughlin MD atorvastatin 20 mg PO BEDTIME calcium carbonate-vitamin D3 600 mg-20 mcg (800 unit) (Caltrate plus D) 1 tab PO DAILY fluoxetine 20 mg PO DAILY folic acid 1 mg PO DAILY lorazepam 0.5 mg PO BEDTIME PRN methotrexate sodium 15 mg PO QWEEK multivitamin 1 tab PO DAILY omeprazole 20 mg PO DAILY HPI Comments Details: 65-year-old female coming in today for initial evaluation of multinodular goiter. Per patient she was seeing Dr. Argueta , PCP , something between 5 to 10 years ago had a biopsy which was benign. She had a CT chest in April 2025 which pointed towards a non homogeneous thyroid gland with a few nodules, subsequently ultrasound thyroid was done on 04/20/2025, I reviewed the images myself which showed a multinodular thyroid, with large size of the lobes. Normal vascularity. A right lower pole 2.8 cm spongiform nodule noted, another right lower pole 1.9 cm spongiform nodule noted. And isthmus 1 cm solid isoechoic TR 3 nodule noted. A left lower pole 3.6 cm solid isoechoic TR 3 category category nodule noted, even though the report comments on it as spongiform, to me this appears has a solid isoechoic nodule. This meets criteria for FNA. A left mid solid isoechoic nodule with punctate echogenic foci also noted, this would be TR 5 category. Measuring 1.1 cm. I will also recommend biopsy of this. Reports comment on it as mixed cystic solid. But I think it is mostly solid. She had normal thyroid function back in 2019. Most recent lab done 03/22/2025 showed mildly low TSH of 0.23. Patient currently denies heat or cold intolerance, diarrhea or constipation, hair loss, palpitation, anxiety, weight changes, mood changes, low energy, changes in appearance of eyes or vision changes, tremors, increased diaphoresis or dry skin. ? Patient denies any difficulty swallowing, pain on swallowing or voice changes or difficulty breathing. Patient denies any history of childhood neck radiation. Denies having ever used lithium, amiodarone or biotin supplements. Patient denies any family history of thyroid cancer . Mother had thyroid disease. Physical exam General: sitting comfortably in no acute distress HEENT: normocephalic/atraumatic, Neck: supple, palpable 2 cm right-sided nodule Cardiac: normal heart sounds Pulm: normal breath sounds B/L, no added breath sounds Abd: not distended, no tenderness Extremities: no edema, no signs of myxedema Neuro: AAO x3, Speech: normal, no facial droop, moving all 4 extremities Laboratory Tests 06/26/19 03/22/25 10:27 08:47 Free T4 1.03 Free T3 3.0 TSH 3rd Generation 0.47 TSH 0.23 L Thyroid Peroxidase Ab <1 EXAMINATION: US THYROID 05/21/25 HISTORY: GOITER TECHNIQUE: Real-time grayscale ultrasound imaging was performed and images were reviewed. COMPARISON: Correlation is made with a CT of the chest without contrast dated 04/06/2025. FINDINGS: SIZE: The right thyroid lobe measures 7.4 x 2.8 x 2.4 cm. The left thyroid lobe measures 7.4 x 3.5 x 3.0 cm. The isthmus measures 11 mm. FLOW: Flow to the gland is normal. ECHOGENICITY: The echotexture of the gland is heterogeneous. NODULES: Multiple bilateral nodules are identified. The largest are described below: Nodule #: 1 Location: Lower pole of the right thyroid lobe measuring 2.8 x 1.9 x 1.9 cm Shape: Wider than tall (0 points) Margins: Smooth (0 points) Echotexture: n/a Composition: Spongiform (0 points) Calcifications: None (0 points) Total points: 0 TIRADS: TR1: Benign Nodule #: 2 Location: Overall the right thyroid lobe measuring 1.9 x 1.4 x 1.6 cm. Shape: Wider than tall (0 points) Margins: Smooth (0 points) Echotexture: n/a Composition: Spongiform (0 points) Calcifications: None (0 points) Total points: 0 TIRADS: TR1: Benign Nodule #: 3 Location: Isthmus measuring 1.0 x 0.7 x 1.1 cm. Shape: Wider than tall (0 points) Margins: Smooth (0 points) Echotexture: Isoechoic (1 point) Composition: Mostly solid (2 points) Calcifications: None (0 points) Total points: 3 TIRADS: TR3: Mildly suspicious. Nodule #: 4 Location: Lower pole of the left thyroid lobe measuring 2.6 x 3.7 x 3.6 cm. Shape: Wider than tall (0 points) Margins: Smooth (0 points) Echotexture: n/a Composition: Spongiform (0 points) Calcifications: None (0 points) Total points: 0 TIRADS: TR1: Benign Nodule #: 5 Location: Midportion of the left thyroid lobe measuring 1.1 x 0.7 x 0.9 cm. Shape: Wider than tall (0 points) Margins: Smooth (0 points) Echotexture: Isoechoic (1 point) Composition: Mixed (1 point) Calcifications: Punctate calcifications (3 points) Total points: 5 TIRADS: TR4: Moderately suspicious. US/US thyroid IMPRESSION: Multiple bilateral thyroid nodules as described. According to ACR TI-RADS guidelines, the nodule in the midportion of the left thyroid lobe (#5 above) should be followed. PFSH Medical History (Updated 05/30/25 @ 14:54 by Margie Mclaughlin MD) Low TSH level Multinodular goiter Sciatic leg pain IBS (irritable bowel syndrome) GERD (gastroesophageal reflux disease) HX: benign breast biopsy Panic attacks Anxiety Depression Elevated cholesterol Surgical History History of bunionectomy Hx laparoscopic cholecystectomy H/O colonoscopy Social History Are you a primary healthcare or medical to a significant other at home: No Do you presently have visiting nurse or other home services: No Patient Tobacco Use Status: Former Tobacco user Tobacco use type: Cigarette Physical Exam Vital Signs: Last Vital Signs Pulse 69 05/30/25 14:29 BP 130/72 05/30/25 14:29 Pulse Ox 97 05/30/25 14:29 Oxygen Delivery Method Room Air 05/30/25 14:29 BMI result Body Mass Index 36.1 Assessment & Plan Assessment & Plan (1) Multinodular goiter: Code(s): E04.2 - Nontoxic multinodular goiter Category: Medical Plan: 65-year-old female with no family history of thyroid cancer, with no personal history of head or neck radiation coming in today to establish care for multinodular goiter. She had a CT chest in April 2025 which pointed towards a heterogenous thyroid gland with a few nodules, subsequently ultrasound thyroid was done on 04/20/2025, I reviewed the images myself which showed a multinodular thyroid, with large size of the lobes. Normal vascularity. A right lower pole 2.8 cm spongiform nodule noted, another right lower pole 1.9 cm spongiform nodule noted. And isthmus 1 cm solid isoechoic TR 3 nodule noted. A left lower pole 3.6 cm solid isoechoic TR 3 category category nodule noted, even though the report comments on it as spongiform, to me this appears has a solid isoechoic nodule. This meets criteria for FNA. A left mid solid isoechoic nodule with punctate echogenic foci also noted, this would be TR 5 category. Measuring 1.1 cm. I will also recommend biopsy of this. Reports comment on it as mixed cystic solid. But I think it is mostly solid. I would biopsy this is well given it is a TR 5 nodule. I explained that it is common to have thyroid nodules. About 95% of the time these nodules are benign. However if the nodule is > 1 cm in size or suspicious on ultrasound then a fine need aspiration biopsy is recommended. We discussed that a FNAB involves 4-5 passes with a small gauge needle and material obtained is sent off for cytology.If the cytopathology is benign then the nodule will be followed annually with repeat ultrasounds. However if it is suspicious or malignant, we will need to discuss further management. Indeterminate cytology can be further investigated with repeat FNA, genetic testing or empiric lobectomy. Malignant cytology is managed with either lobectomy or total thyroidectomy. We discussed briefly that thyroid cancer is, in most patients, an indolent disease that does not affect mortality. We will arrange for FNA of the left lower 3.6 cm and the left mid 1.1 cm thyroid nodules at next available opening and patient will follow up with me in clinic thereafter for results and further decision making. She does not have any compressive symptoms. Plan: -scheduled for FNA of the left lower 3.6 cm and the left mid 1.1 cm thyroid nodules and follow up 2 weeks after to discuss results (2) Low TSH level: Code(s): R79.89 - Other specified abnormal findings of blood chemistry Category: Medical Plan: She had normal thyroid function back in 2019. Most recent lab done 03/22/2025 showed mildly low TSH of 0.23. She does not have any signs or symptoms of hyperthyroidism, does not take biotin supplements. No preceding viral infection. We will repeat labs. Could potentially have subclinical hyperthyroidism in the setting of underlying toxic nodules or autoimmune thyroid disease. She does not have any symptoms of autoimmune thyroid disease such as a large goiter, eye disease symptoms. Plus we do not have a free T4 with a TSH so I can not tell if this is overt or subclinical. We will repeat labs. We will also check for antibody levels. Plan: -ordered TSH, free T4, total T3, TSI, TSH receptor and TPO antibody levels Plan I spent 45 minutes in reviewing the record, seeing the patient and documenting in the medical record. Orders: Orders Thyroid Peroxidase Antibodies Today E04.2 - Nontoxic multinodular goiter, R79.89 - Other specified abnormal findings of blood chemistry Thyrotropin Receptor Antibody Today E04.2 - Nontoxic multinodular goiter, R79.89 - Other specified abnormal findings of blood chemistry Thyroid Stimulating Immunoglob Today E04.2 - Nontoxic multinodular goiter, R79.89 - Other specified abnormal findings of blood chemistry US biopsy thyroid Today E04.2 - Nontoxic multinodular goiter Triiodothyronine T3 Total Today E04.2 - Nontoxic multinodular goiter Thyroid Stimulating Hormone Today E04.2 - Nontoxic multinodular goiter, R79.89 - Other specified abnormal findings of blood chemistry Free T4 (Free Thyroxine) Today E04.2 - Nontoxic multinodular goiter, R79.89 - Other specified abnormal findings of blood chemistry Coding Level of Care Code New Pt Level 4 (59261) Diagnoses Multinodular goiter E04.2 Low TSH level R79.89 Time Spent (min) 45
--- OUTSIDE RECORDS SUMMARY | 2025-05-30 18:48 | XMS_ITS | Patient Health Record ---
Author Organization [facility] Address [address] [place] [address] Care Team Providers Care Paid Intern Name Role Phone Fausto Koroma Primary Care Provider ZEINA Presley Unavailable [phone] Allergies Allergen (clinical drug ingredient) Drug/Non Drug [...] W/U Status Risk Notes Problem Inflammatory arthritis (1653579) Inflammatory arthritis (M19.90) Active confirmed Plan Of Treatment Pending Test Test Name Order Date X ray : Foot, left 3v 09/13/2023 X ray : Foot, right 3v 09/13/2023 Insurance Providers Payer Name Payer Address Payer Phone Subscriber Number Group Number Insured Name Patient Relationship to Insured Coverage Start Date Coverage End Date [employer] [address] [place] [address] [id number] Leda Atkinson Self - patient is the [...]
--- OUTSIDE RECORDS SUMMARY | 2025-05-30 18:48 | XMS_ITS | Patient Health Record ---
Author Organization [facility] Address [address] [place] [address] Care Team Providers Care Botany Technician Name Role Phone Fausto Koroma MD Primary Care Provider Avelino Conroy [phone] Allergies Allergen (clinical drug ingredient) Drug/Non Drug [...] Problem Screening for malignant neoplasm of colon (230255896) Encounter for screening for malignant neoplasm of colon (Z12.11) Active confirmed Problem Diverticulosis of colon (349763412) Diverticulosis of colon (K57.30) Active confirmed Plan [...] Date Coverage End Date [employer] [address] [place] [address] [id number] MJ CHOWDHURY Self - patient is the insured Medical (General) History Medical History History ICD Code Hyperlipidemia Denies ID,DM,CVA,Lung disease,renal dise ase Depression/anxiety/panic attacks Negative screening colonoscopy in 12/2011 Sciatica Surgical History Surgery Date(Month/Year) CCY Benign breast biopsy Bunions
--- OUTSIDE RECORDS SUMMARY | 2025-05-30 18:48 | XMS_ITS | Patient Health Record ---
Author Organization [facility] Address [address] [facility] [address] Care Team Providers Care Outer Diameter Technician Name Role Phone Fausto Koroma MD Primary Care Provider Rupesh Merritt Unavailable [phone] Allergies Allergen (clinical drug ingredient) Drug/Non Drug [...] Problem Acquired hammer toe of right foot (9406802296630 105) Other hammer toe(s) (acquired), right foot (M20.41) Active confirmed Plan Of Treatment Pending Test Test Name Order Date X ray : Foot, right 3V 11/03/2016 X ray : Foot, right 3V 03/01/2022 [id number] Destruction, -11/03/2016 [id number] Destruction, -12/06/2016 Insurance Providers Payer Name Payer Address Payer Phone Subscriber Number Group Number Insured Name Patient Relationship to Insured Coverage Start Date Coverage End Date [employer] [address] [place] [address] [id number] Leda Atkinson Self - patient is the [...]
== END 2025-05-30 15:08 | disposition home or self-care (01) ==
LOC: HO.ENCR 14:28
PROVIDERS: PCP Nurse Practitioner Adult Health; Visit Provider Student in an Organized Health Care Education/Training Program
DX: E04.2 Nontoxic multinodular goiter (principal); R79.89 Other specified abnormal findings of blood chemistry
CPT/HCPCS: 99204

== ENCOUNTER 2025-05-31 09:38 | Outpatient (REF) | payer OTHER, SELFPAY ==
--- OUTSIDE RECORDS SUMMARY | 2025-05-31 10:38 | XMS_ITS | Patient Health Record ---
Author Organization [facility] Address [address] [facility] [place] [address] Care Team Providers Care Form Block Maker Name Role Phone Fausto Koroma MD Primary Care Provider Rupesh Merritt Unavailable [phone] Allergies Allergen (clinical drug ingredient) Drug/Non Drug [...] Problem Acquired hammer toe of right foot (9852423790603 105) Other hammer toe(s) (acquired), right foot (M20.41) Active confirmed Plan Of Treatment Pending Test Test Name Order Date X ray : Foot, right 3V 11/03/2016 X ray : Foot, right 3V 03/01/2022 [id number] Destruction, -11/03/2016 [id number] Destruction, -12/06/2016 Insurance Providers Payer Name Payer Address Payer Phone Subscriber Number Group Number Insured Name Patient Relationship to Insured Coverage Start Date Coverage End Date [employer] [address] [place] [address] [id number] Leda Atkinson Self - patient is the [...]
--- OUTSIDE RECORDS SUMMARY | 2025-05-31 10:38 | XMS_ITS | Patient Health Record ---
Author Organization [facility] Address [address] [place] [address] Care Team Providers Care Bereavement Counselor Name Role Phone Fausto Koroma Primary Care Provider ZEINA Presley Unavailable [phone] Allergies Allergen (clinical drug ingredient) Drug/Non Drug [...] W/U Status Risk Notes Problem Inflammatory arthritis (8770814) Inflammatory arthritis (M19.90) Active confirmed Plan Of Treatment Pending Test Test Name Order Date X ray : Foot, left 3v 09/13/2023 X ray : Foot, right 3v 09/13/2023 Insurance Providers Payer Name Payer Address Payer Phone Subscriber Number Group Number Insured Name Patient Relationship to Insured Coverage Start Date Coverage End Date [employer] [address] [place] [address] [id number] Leda Atkinson Self - patient is the [...]
--- OUTSIDE RECORDS SUMMARY | 2025-05-31 10:39 | XMS_ITS | Patient Health Record ---
Author Organization [facility] Address [address] [place] [address] Care Team Providers Care Hvac Maintenance Technician Name Role Phone Fausto Koroma MD Primary Care Provider Avelino Conroy [phone] Allergies Allergen (clinical drug ingredient) Drug/Non Drug [...] Problem Screening for malignant neoplasm of colon (472887865) Encounter for screening for malignant neoplasm of colon (Z12.11) Active confirmed Problem Diverticulosis of colon (587325332) Diverticulosis of colon (K57.30) Active confirmed Plan [...] Date Coverage End Date [employer] [address] [place] [address] [phone] [id number] MJ CHOWDHURY Self - patient is the insured Medical (General) History Medical History History ICD Code Hyperlipidemia Denies CT,DM,CVA,Lung disease,renal dise ase Depression/anxiety/panic attacks Negative screening colonoscopy in 12/2011 Sciatica Surgical History Surgery Date(Month/Year) CCY Benign breast biopsy [facility]ions
[2025-05-31 12:14] LABS: Free T4 (Free Thyroxine) 1.09 ng/dL (0.71-1.85); Thyroid Stimulating Hormone 0.14 uIU/mL (0.32-4.0)
== END 2025-05-31 09:39 | disposition home or self-care (01) ==
LOC: HO.WFDLDS 09:38
PROVIDERS: Visit Provider Student in an Organized Health Care Education/Training Program
DX: E04.2 Nontoxic multinodular goiter (principal); R79.89 Other specified abnormal findings of blood chemistry
CPT/HCPCS: 36415; 83520; 84439; 84443; 84445; 84480; 86376

== ENCOUNTER 2025-06-11 08:46 | Outpatient (REF) | payer OTHER, SELFPAY ==
--- OUTSIDE RECORDS SUMMARY | 2025-06-11 09:31 | XMS_ITS | Patient Health Record ---
Author Organization [facility] Address [address] [facility] [place] [address] Care Team Providers Care Cushion Stuffer Name Role Phone Fausto Koroma MD Primary Care Provider Rupesh Coleman Unavailable [phone] Allergies Allergen (clinical drug ingredient) Drug/Non Drug [...] Problem Acquired hammer toe of right foot ([id number] 105) Other hammer toe(s) (acquired), right foot (M20.41) Active confirmed Plan Of Treatment Pending Test Test Name Order Date X ray : Foot, right 3V 03/01/2022 X ray : Foot, right 3V 11/03/2016 [id number] Destruction, -12/06/2016 [id number] Destruction, -11/03/2016 Insurance Providers Payer Name Payer Address Payer Phone Subscriber Number Group Number Insured Name Patient Relationship to Insured Coverage Start Date Coverage End Date [employer] [address] [place] [address] [id number] Leda Atkinson Self - patient is the [...]
--- OUTSIDE RECORDS SUMMARY | 2025-06-11 09:31 | XMS_ITS | Patient Health Record ---
Author Organization [facility] Address [address] [place] [address] Care Team Providers Care Traffic I Manager Name Role Phone Fausto Koroma MD Primary Care Provider Avelino Conroy [phone] Allergies Allergen (clinical drug ingredient) Drug/Non Drug [...] Problem Screening for malignant neoplasm of colon (584235104) Encounter for screening for malignant neoplasm of colon (Z12.11) Active confirmed Problem Diverticulosis of colon (797672620) Diverticulosis of colon (K57.30) Active confirmed Plan [...] Date Coverage End Date [employer] [address] [place] [address] [id number] MJ CHOWDHURY Self - patient is the insured Medical (General) History Medical History History ICD Code Hyperlipidemia Denies [place],DM,CVA,Lung disease,renal dise ase Depression/anxiety/panic attacks Negative screening colonoscopy in 12/2011 Sciatica Surgical History Surgery Date(Month/Year) CCY Benign breast biopsy Bunions
--- OUTSIDE RECORDS SUMMARY | 2025-06-11 09:31 | XMS_ITS | Patient Health Record ---
Author Organization [facility] Address [address] [place] [address] Care Team Providers Care Inspector Ball Points Name Role Phone Fausto Koroma Primary Care Provider ZEINA Presley Unavailable [phone] Allergies Allergen (clinical drug ingredient) Drug/Non Drug [...] W/U Status Risk Notes Problem Inflammatory arthritis (1641467) Inflammatory arthritis (M19.90) Active confirmed Plan Of Treatment Pending Test Test Name Order Date X ray : Foot, left 3v 09/13/2023 X ray : Foot, right 3v 09/13/2023 Insurance Providers Payer Name Payer Address Payer Phone Subscriber Number Group Number Insured Name Patient Relationship to Insured Coverage Start Date Coverage End Date [employer] [address] [place] [address] [phone] [id number] Leda Atkinson Self - patient is the [...]
[2025-06-11 11:27] LABS: MANUAL DIFF FLAG NO
[2025-06-11 11:35] LABS: Hematocrit 39.7 % (37.0-47.0); Hemoglobin 13.5 g/dl (12.0-16.0); Imm Gran Abs Auto 0.04 X10*3/uL (0.00-0.03); Imm Gran Pct Auto 0.4 % (0.0-0.4); Lymphocytes Absolute Auto 1.4 X10*3/uL (1.2-4.9); Mean Corpuscular HGB Conc 34.0 g/dl (31.0-35.0); Mean Corpuscular Hemoglobin 30.6 pg (27.0-33.0); Mean Corpuscular Volume 90.0 fL (80.0-98.0); NRBC Abs Auto 0.000 X10*3/uL (0.0-0.012); NRBC Pct Auto 0.0 /100WBC (0.0-0.2); Platelet Count 326 X10*3/uL (160-400); Red Blood Count 4.41 X10*6/uL (4.20-5.50); White Blood Count 9.1 X10*3/uL (4.8-10.8)
[2025-06-11 11:50] LABS: Alanine Aminotransferase 14 U/L (0-31); Albumin Level 4.0 g/dL (3.5-5.0); Aspartate Amino Transferase 20 U/L (5-31); Estimated Glomerular Filt Rate > 60
== END 2025-06-11 08:47 | disposition home or self-care (01) ==
LOC: HO.WFDLDS 08:46
PROVIDERS: Visit Provider Internal Medicine Rheumatology
DX: M05.9 Rheumatoid arthritis with rheumatoid factor, unspecified (principal)
CPT/HCPCS: 36415; 82040; 82565; 84450; 84460; 85025; 85652; 86140

== ENCOUNTER 2025-06-12 07:44 | Outpatient (REF) | payer OTHER, SELFPAY ==
--- OUTSIDE RECORDS SUMMARY | 2025-06-12 07:46 | XMS_ITS | Patient Health Record ---
Author Organization [facility] Address [address] [place] [address] Care Team Providers Care Waste Recycler Name Role Phone Fausto Koroma Primary Care Provider ZEINA Presley Unavailable [phone] Allergies Allergen (clinical drug ingredient) Drug/Non Drug [...] W/U Status Risk Notes Problem Inflammatory arthritis (9618473) Inflammatory arthritis (M19.90) Active confirmed Plan Of Treatment Pending Test Test Name Order Date X ray : Foot, left 3v 09/13/2023 X ray : Foot, right 3v 09/13/2023 Insurance Providers Payer Name Payer Address Payer Phone Subscriber Number Group Number Insured Name Patient Relationship to Insured Coverage Start Date Coverage End Date [employer] [address] [place] [address] [id number] Leda Atkinson Self - patient is the [...]
--- OUTSIDE RECORDS SUMMARY | 2025-06-12 07:47 | XMS_ITS | Patient Health Record ---
Author Organization [facility] Address [address] [place] [address] Care Team Providers Care Billposting Supervisor Name Role Phone Fausto Koroma MD Primary Care Provider Avelino Conroy [phone] Allergies Allergen (clinical drug ingredient) Drug/Non Drug [...] Problem Screening for malignant neoplasm of colon (270273141) Encounter for screening for malignant neoplasm of colon (Z12.11) Active confirmed Problem Diverticulosis of colon (338477535) Diverticulosis of colon (K57.30) Active confirmed Plan [...] Date Coverage End Date [employer] [address] [facility] [address] [phone] [id number] MJ CHOWDHURY Self - patient is the insured Medical (General) History Medical History History ICD Code Hyperlipidemia Denies [place],DM,CVA,Lung disease,renal dise ase Depression/anxiety/panic attacks Negative screening colonoscopy in 12/2011 Sciatica Surgical History Surgery Date(Month/Year) CCY Benign breast biopsy Bunions
--- OUTSIDE RECORDS SUMMARY | 2025-06-12 07:47 | XMS_ITS | Patient Health Record ---
Author Organization [facility] Address [address] [facility] [place] [address] Care Team Providers Care Creasing And Cutting Press Feeder Name Role Phone Fausto Koroma MD Primary Care Provider Rupesh Coleman Unavailable [phone] Allergies Allergen (clinical drug ingredient) Drug/Non Drug [...] Problem Acquired hammer toe of right foot (8700296968300 105) Other hammer toe(s) (acquired), right foot (M20.41) Active confirmed Plan Of Treatment Pending Test Test Name Order Date X ray : Foot, right 3V 11/03/2016 X ray : Foot, right 3V 03/01/2022 [id number] Destruction, -11/03/2016 [id number] Destruction, -12/06/2016 Insurance Providers Payer Name Payer Address Payer Phone Subscriber Number Group Number Insured Name Patient Relationship to Insured Coverage Start Date Coverage End Date Ell[employer] [address] [place] [address] [id number] Leda Atkinson Self - patient is the [...]
--- NOTE | 2025-06-12 08:59 | PCN2_ITS ---
Brief Operative Note Date of procedure: 06/12/25 Pre-op diagnosis: left lower 3.7 cm and left mid 1.1 cm thyroid nodule FNA bio psy Post-op diagnosis: same Procedure: THYROID FINE NEEDLE ASPIRATION PROCEDURE NOTE ? PROCEDURE PERFORMED: Ultrasound-guided FNA of thyroid nodule ? OPERATORS: Dr. Margie Mclaughlin ? INDICATION: left lower 3.7 cm and left mid 1.1 cm thyroid nodules ; FNA performed to assess for malignancy ? DESCRIPTION OF PROCEDURE: The indications for FNA (to assess for malignancy) were reviewed with the patient in detail. Potential complications (e.g., bleeding, infection, damage to local structures, absence of clear diagnosis after FNA) were reviewed. Alternatives to FNA including conservative observation or surgery were described. The patient understood and agreed to proceed. This was documented by the signing of the written informed consent form. A time-out was performed to confirm the patient's identity and the site of planned FNA. The nodules of interest were identified using ultrasound (14 MHz linear array probe). The sites of FNA was then draped in the usual fashion and carefully cleaned and prepared using alcohol swabs. The skin at the previously-identified site of needle insertion was iced and sprayed with numbing spray. first for the left lower 3.7 cm thyroid nodule, Under ultrasound guidance, _4_ passes were performed using a 1.5-inch, 25-gauge needle, and sample was obtained via capillary action. The needle tip was clearly visualized to be within the nodule at the time of sampling for 4__ of 4__ passes. then for the left mid 1.1 cm thyroid nodule, Under ultrasound guidance, _5_ passes were performed using a 1.5-inch, 25-gauge needle, and sample was obtained via capillary action. The needle tip was clearly visualized to be within the nodule at the time of sampling for 2__ of 5__ passes. The patient tolerated the procedure well. There were no immediate complications. A small adhesive bandage was applied, and the patient was advised to take acetaminophen (rather than NSAIDs) for any discomfort and to report any signs of inflammation/infection or marked swelling. IMPRESSION: Technically successful ultrasound-guided fine needle aspiration of left lower 3.7 cm and left mid 1.1 cm thyroid nodules. PLAN: The patient was advised that I will provide follow-up regarding the cytology result and any subsequent plans. Margie Mclaughlin MD Endocrinology Attending Condition: stable Disposition: same day
== END 2025-06-12 07:45 | disposition home or self-care (01) ==
LOC: HO.US 07:44
PROVIDERS: PCP Nurse Practitioner Adult Health; Visit Provider Student in an Organized Health Care Education/Training Program
DX: E04.2 Nontoxic multinodular goiter (principal)
CPT/HCPCS: 10005; 10006; 88173

== ENCOUNTER → 2025-06-12 07:44 | Outpatient (BNV) | payer OTHER, SELFPAY | PROVIDERS: PCP Nurse Practitioner Adult Health; Visit Provider Student in an Organized Health Care Education/Training Program | DX: E04.2 Nontoxic multinodular goiter (principal) | CPT/HCPCS: 10005; 10006 ==

== ENCOUNTER 2025-07-25 07:49 | Outpatient (AMB) | payer OTHER, SELFPAY ==
--- OUTSIDE RECORDS SUMMARY | 2025-07-25 07:57 | XMS_ITS | Patient Health Record ---
Author Organization [facility] Address [address] [facility] [place] [address] Care Team Providers Care Development Representative Name Role Phone Fausto Koroma MD Primary Care Provider Rupesh Coleman Unavailable [phone] Allergies Allergen (clinical drug ingredient) Drug/Non Drug [...] Problem Acquired hammer toe of right foot (9826881050322 [id number]) Other hammer toe(s) (acquired), right foot (M20.41) Active confirmed Plan Of Treatment Pending Test Test Name Order Date X ray : Foot, right 3V 11/03/2016 X ray : Foot, right 3V 03/01/2022 [id number] Destruction, -11/03/2016 [id number] Destruction, -12/06/2016 Insurance Providers Payer Name Payer Address Payer Phone Subscriber Number Group Number Insured Name Patient Relationship to Insured Coverage Start Date Coverage End Date Ellana [address] [place] [address] [phone] [id number] Leda Atkinson Self - patient is the [...]
--- OUTSIDE RECORDS SUMMARY | 2025-07-25 07:57 | XMS_ITS | Patient Health Record ---
Author Organization [facility] Address [address] [place] [address] Care Team Providers Care Tractor Sweeper Driver Name Role Phone Fausto Koroma Primary Care Provider ZEINA Presley Unavailable [phone] Allergies Allergen (clinical drug ingredient) Drug/Non Drug [...] W/U Status Risk Notes Problem Inflammatory arthritis (5190919) Inflammatory arthritis (M19.90) Active confirmed Plan Of Treatment Pending Test Test Name Order Date X ray : Foot, left 3v 09/13/2023 X ray : Foot, right 3v 09/13/2023 Insurance Providers Payer Name Payer Address Payer Phone Subscriber Number Group Number Insured Name Patient Relationship to Insured Coverage Start Date Coverage End Date [employer] [address] [place] [address] [id number] Leda Atkinson Self - patient is the [...]
--- OUTSIDE RECORDS SUMMARY | 2025-07-25 07:57 | XMS_ITS | Patient Health Record ---
Author Organization [facility] Address [address] [place] [address] Care Team Providers Care Summer Counselor Name Role Phone Fausto Koroma MD Primary Care Provider Avelino Conroy [phone] Allergies Allergen (clinical drug ingredient) Drug/Non Drug Allergy documented on EMR Reaction Allergy Type Onset Date Status EPINEPHrine Unknown Drug Allergy Activ e Penicillin Unknown Drug Allergy Active prednisolone Prednisolone Unknown Drug Allergy A ctive Reason For Referral No Information Medications Medication SIG (Take, Route, Frequency, Duration) Notes Start Date End Date Status Atorvastatin Calcium 20 MG Tablet 1 tablet Orally Once a day; Duration: 30 day(s) Active Caltrate 600+D3 600-800 MG-UNIT Tablet 1 tablet with a meal Orally Once a day; Duration: 30 day(s) Active LORazepam 0.5 MG Tablet 1 tablet at bedt sandra as needed Orally Once a day Rarely uses Active One Daily Adults 50+ - Tablet as directed Orally Active Calcium + D 600mg Ac tive Multi Vitamin/Minerals Active Omeprazole 20 MG Capsule Delayed Release 1 capsule 30 minutes before morning meal Orally Once a day; Duration: 30 day(s) Active FLUoxetine HCl 20 MG Capsule 1 capsule Orally Once a day; Duration: 30 day(s) Active Immunizations Vaccine Route Administration Date Status Comme nts Influenza Unknown 07/28/2021 Administered Social History Social History Drugs/Alcohol: Social Info Question Answer Notes Alcohol Screen Did you have a drink containing alcohol in the past year? Yes How often did you have a drink containing alcohol in the past year? Monthly or less (1 point) How many drinks did you have on a typical day when you were drinking in the past year? 1 or 2 drinks (0 point) How often did you have 6 or more drinks on one occasion in the past year? 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 EtOH use Nonsmoker, no sig. EtOH use Problems Problem Type SNOMED Code ICD Code Onset Dates Problem Status W/U Status Risk Notes Problem Screening for malignant neoplasm of colon (674098481) Encounter for screening for malignant neoplasm of colon (Z12.11) Active confirmed Problem Diverticulosis of colon (400860938) Diverticulosis of colon (K57.30) Active confirmed Plan [...] Date Coverage End Date [employer] [address] [place] [address] [id number] MJ CHOWDHURY Self - patient is the insured Medical (General) History Medical History History ICD Code Hyperlipidemia Denies OR,DM,CVA,Lung disease,renal dise ase Depression/anxiety/panic attacks Negative screening colonoscopy in 12/2011 Sciatica Surgical History Surgery Date(Month/Year) [facility] Benign breast biopsy [facility]
--- NOTE | 2025-07-25 08:00 | A.OFFVIS_ITS ---
Vital Signs 07/25/25 08:01 Height 5 ft 5 in BMI Reason not done Patient refused/unable BP 122/80 Blood Pressure Location Rt brachial Position Sitting Pulse 73 Pulse Source Pulse Oximeter Oxygen Delivery Method Room Air Oxygen Flow Rate 98 Intake Visit Reasons: f/u thyroid FNA- pt Intake Note: Patient presents here today for FNA Thyroid Biopsy Results: Thyroid Biopsy Performed by DR Margie Mclaughlin MD on 06/12/2025. Take Away Attendant Required: No Accompanied by: Self / Same As Patient Allergies penicillin G Allergy (Unknown, Verified 07/25/25 08:01) hives epinephrine Adverse Reaction (Verified 07/25/25 08:01) Palpitations prednisone Adverse Reaction (Verified 07/25/25 08:01) Gastrointestinal Upset HPI Comments Details: 65-year-old female coming in today for initial evaluation of multinodular goiter. Per patient she was seeing Dr. Argueta , PCP , something between 5 to 10 years ago had a biopsy which was benign. She had a CT chest in April 2025 which pointed towards a non homogeneous thyroid gland with a few nodules, subsequently ultrasound thyroid was done on 04/20/2025, I reviewed the images myself which showed a multinodular thyroid, with large size of the lobes. Normal vascularity. A right lower pole 2.8 cm spongiform nodule noted, another right lower pole 1.9 cm spongiform nodule noted. And isthmus 1 cm solid isoechoic TR 3 nodule noted. A left lower pole 3.6 cm solid isoechoic TR 3 category category nodule noted, even though the report comments on it as spongiform, to me this appears has a solid isoechoic nodule. This meets criteria for FNA. A left mid solid isoechoic nodule with punctate echogenic foci also noted, this would be TR 5 category. Measuring 1.1 cm. I will also recommend biopsy of this. Reports comment on it as mixed cystic solid. But I think it is mostly solid. She had normal thyroid function back in 2019. Most recent lab done 03/22/2025 showed mildly low TSH of 0.23. Patient currently denies heat or cold intolerance, diarrhea or constipation, hair loss, palpitation, anxiety, weight changes, mood changes, low energy, changes in appearance of eyes or vision changes, tremors, increased diaphoresis or dry skin. ? Patient denies any difficulty swallowing, pain on swallowing or voice changes or difficulty breathing. Patient denies any history of childhood neck radiation. Denies having ever used lithium, amiodarone or biotin supplements. Patient denies any family history of thyroid cancer . Mother had thyroid disease. Interval history: She reports feeling overall well reports gaining some weight She reports intermittent palpitations, diarrhea (since her gallbladder was removed, specially with fatty foods). No heat intolerance. Some air falling (many family members has hair loss too) No dysphagia or bolus sensation. Physical exam General: Well appearing. NAD. Neck/Thyroid: Thyroid not palpable, no nodules. Eyes: No conjunctival injection, not lid lag or proptosis CV: RRR, no murmur. No edema. Resp:Lungs clear to auscultation bilaterally Abdomen: Soft, nontender. nondistended Extremities/Neuro: No weakness or tremor of outstretched hands Diabetic Foot Exam: sensation to monofilament exam Laboratory Tests 06/26/19 03/22/25 05/31/25 10:27 08:47 09:46 Free T4 1.03 1.09 TSH 0.23 L 0.14 L Total T3 122 Thyroid Stim Immunoglob <89 Thyroid Peroxidase Ab <1 TSH Receptor Ab <1.00 EXAMINATION: US THYROID 05/21/25 HISTORY: GOITER TECHNIQUE: Real-time grayscale ultrasound imaging was performed and images were reviewed. COMPARISON: Correlation is made with a CT of the chest without contrast dated 04/06/2025. FINDINGS: SIZE: The right thyroid lobe measures 7.4 x 2.8 x 2.4 cm. The left thyroid lobe measures 7.4 x 3.5 x 3.0 cm. The isthmus measures 11 mm. FLOW: Flow to the gland is normal. ECHOGENICITY: The echotexture of the gland is heterogeneous. NODULES: Multiple bilateral nodules are identified. The largest are described below: Nodule #: 1 Location: Lower pole of the right thyroid lobe measuring 2.8 x 1.9 x 1.9 cm Shape: Wider than tall (0 points) Margins: Smooth (0 points) Echotexture: n/a Composition: Spongiform (0 points) Calcifications: None (0 points) Total points: 0 TIRADS: TR1: Benign Nodule #: 2 Location: Overall the right thyroid lobe measuring 1.9 x 1.4 x 1.6 cm. Shape: Wider than tall (0 points) Margins: Smooth (0 points) Echotexture: n/a Composition: Spongiform (0 points) Calcifications: None (0 points) Total points: 0 TIRADS: TR1: Benign Nodule #: 3 Location: Isthmus measuring 1.0 x 0.7 x 1.1 cm. Shape: Wider than tall (0 points) Margins: Smooth (0 points) Echotexture: Isoechoic (1 point) Composition: Mostly solid (2 points) Calcifications: None (0 points) Total points: 3 TIRADS: TR3: Mildly suspicious. Nodule #: 4 Location: Lower pole of the left thyroid lobe measuring 2.6 x 3.7 x 3.6 cm. Shape: Wider than tall (0 points) Margins: Smooth (0 points) Echotexture: n/a Composition: Spongiform (0 points) Calcifications: None (0 points) Total points: 0 TIRADS: TR1: Benign Nodule #: 5 Location: Midportion of the left thyroid lobe measuring 1.1 x 0.7 x 0.9 cm. Shape: Wider than tall (0 points) Margins: Smooth (0 points) Echotexture: Isoechoic (1 point) Composition: Mixed (1 point) Calcifications: Punctate calcifications (3 points) Total points: 5 TIRADS: TR4: Moderately suspicious. US/US thyroid IMPRESSION: Multiple bilateral thyroid nodules as described. According to ACR TI-RADS guidelines, the nodule in the midportion of the left thyroid lobe (#5 above) should be followed. [facility] Medical History Low TSH level Multinodular goiter Sciatic leg pain IBS (irritable bowel syndrome) GERD (gastroesophageal reflux disease) HX: benign breast biopsy Panic attacks Anxiety Depression Elevated cholesterol Surgical History Hx of ultrasound guided needle biopsy History of bunionectomy Hx laparoscopic cholecystectomy H/O colonoscopy Social History Are you a primary day care worker to a significant other at home: No Do you presently have visiting nurse or other home services: No Patient Tobacco Use Status: Former Tobacco user Tobacco use type: Cigarette Physical Exam Vital Signs: Last Vital Signs Pulse 73 07/25/25 08:01 BP 122/80 07/25/25 08:01 Oxygen Delivery Method Room Air 07/25/25 08:01 Oxygen Flow Rate 98 07/25/25 08:01 Assessment & Plan Assessment & Plan (1) Multinodular goiter: Code(s): E04.2 - Nontoxic multinodular goiter Category: Medical Plan: 65-year-old female with no family history of thyroid cancer, with no personal history of head or neck radiation coming in today to establish care for multinodular goiter. She had a CT chest in April 2025 which pointed towards a heterogenous thyroid gland with a few nodules, subsequently ultrasound thyroid was done on 04/20/2025, I reviewed the images myself which showed a multinodular thyroid, with large size of the lobes. Normal vascularity. A right lower pole 2.8 cm spongiform nodule noted, another right lower pole 1.9 cm spongiform nodule noted. And isthmus 1 cm solid isoechoic TR 3 nodule noted. A left lower pole 3.6 cm solid isoechoic TR 3 category category nodule noted, even though the report comments on it as spongiform, to me this appears has a solid isoechoic nodule. This meets criteria for FNA. A left mid solid isoechoic nodule with punctate echogenic foci also noted, this would be TR 5 category. Measuring 1.1 cm. I will also recommend biopsy of this. Reports comment on it as mixed cystic solid. But I think it is mostly solid. I would biopsy this is well given it is a TR 5 nodule. We discussed with the patient that her left lower pole thyroid nodule FNA came back resulting as benign thyroid nodule. In regards to the left midpole thyroid nodule, it came back nondiagnostic. We discussed that at this time the is to options in regards to this thyroid nodule, we could either repeat the FNA which will likely result in if diagnosis, or we could monitor 6-12 month to see any changes on thyroid nodule size that with in dicate need for repeat FNA. She elected surveillance with US in 6 months. She denies compressive symptoms. Plan: Repeat US in 6 months for the left midpole thyroid nodule. 1 year for the benign left lower pole. (2) Low TSH level: Code(s): R79.89 - Other specified abnormal findings of blood chemistry Category: Medical Plan: She had normal thyroid function back in 2019. I did notice that the patient has had a suppressed TSH in March and May 2025, with normal FT4, most likely indicating subclinical hypothyroidism. Thyroid antobodies resulted negative and further increasing the suspicion for subclinical hyperthyroidism. In terms of symptoms, patient reported some symptoms that could be related to her thyroid. That seems consistent with mild subclinical hyperthyroidism. I would monitor TSH again prior to next visit, if still suppressed, consider thyroid uptake vs continue monitoring. Plan: Repeat TSH/FT4/TT3 prior to next visit Plan I spent 30 minutes in reviewing the record, seeing the patient and documenting in the medical record. Orders: Orders TSH reflex Free T4 6 Months E04.2 - Nontoxic multinodular goiter, R79.89 - Other specified abnormal findings of blood chemistry Free T4 (Free Thyroxine) 6 Months E04.2 - Nontoxic multinodular goiter, R79.89 - Other specified abnormal findings of blood chemistry Triiodothyronine T3 Total 6 Months E04.2 - Nontoxic multinodular goiter, R79.89 - Other specified abnormal findings of blood chemistry US thyroid 6 Months E04.2 - Nontoxic multinodular goiter, R79.89 - Other specified abnormal findings of blood chemistry Coding Level of Care Code Est Pt Level 4 (60016) Diagnoses Multinodular goiter E04.2 Low TSH level R79.89
[2025-07-25 08:01] VITALS: BP 122/80; PULSE 73
== END 2025-07-25 08:28 | disposition home or self-care (01) ==
LOC: HO.ENCR 07:50
PROVIDERS: PCP Nurse Practitioner Adult Health; Visit Provider Student in an Organized Health Care Education/Training Program
DX: E04.2 Nontoxic multinodular goiter (principal); R79.89 Other specified abnormal findings of blood chemistry
CPT/HCPCS: 99214